=== PATIENT | female | born 1965 | race Caucasian/White ===

== ENCOUNTER 2020-11-28 10:48 | Outpatient (CLI) | payer OTHER, SELFPAY ==
[2020-11-28 18:23] LABS: Anion Gap 9 mmol/L (8-16); Blood Urea Nitrogen 34 mg/dL (7-17); Calcium 10.2 mg/dL (8.4-10.2); Carbon Dioxide 27 mmol/L (22-30); Chloride 104 mmol/L (98-107); Cholesterol 208 mg/dL (0-200); Estimated Glomerular Filt Rate 51; Glucose 206 mg/dL (65-105); HDL Direct 41 mg/dL; Potassium 4.7 mmol/L (3.4-5.0); Sodium 140 mmol/L (137-145); Triglycerides 446 mg/dL (<150)
[2020-11-28 18:34] LABS: LDL Cholesterol Direct 90 mg/dL
[2020-11-28 18:40] LABS: Free T4 Free Thyroxine 0.72 ng/mL (0.78-2.19)
[2020-11-28 19:01] LABS: Microalbumin Urine Random 15.1 mg/L (0-16.7)
[2020-11-28 19:02] LABS: Creatinine Urine 162.3 mg/dL; MALB Creatinine Ratio 9.3 mg/g (0-30)
== END 2020-11-28 10:49 | disposition home or self-care (01) ==
PROVIDERS: PCP Family Medicine; Visit Provider Internal Medicine Endocrinology, Diabetes & Metabolism
DX: E03.9 Hypothyroidism, unspecified (principal); E11.9 Type 2 diabetes mellitus without complications; E78.1 Pure hyperglyceridemia
CPT/HCPCS: 36415; 80048; 80061; 82043; 82607; 84439; 84443

== ENCOUNTER 2021-07-21 11:49 | Outpatient (CLI) | payer OTHER, SELFPAY ==
[2021-07-21 13:06] LABS: Basophils Absolute Auto 0.1 K/mm3 (0.0-0.1); Basophils Percent Auto 0.5 % (0.2-1.2); Eosinophils Absolute Auto 0.2 K/mm3 (0-0.3); Eosinophils Percent Auto 2.2 % (0-4.4); Hematocrit 44.1 % (37.0-47.0); Hemoglobin 13.9 g/dL (12.0-15.0); Immature Granulocyte Absolute 0.05 K/mm3 (0.00-0.031); Immature Granulocyte Percent A 0.5 % (0-0.5); Lymphocytes Absolute Auto 2.02 K/mm3 (0.9-3.2); Lymphocytes Percent Auto 19.6 % (18.3-44.2); Mean Corpuscular HGB Conc 31.5 g/dl (32-36); Mean Corpuscular Volume 91.9 fl (80-100); Mean Platelet Volume 10.3 fl (7.4-10.4); Monocytes Absolute Auto 0.5 K/mm3 (0.1-0.6); Neutrophils Absolute Auto 7.5 K/mm3 (1.3-6.7); Neutrophils Percent Auto 72.2 % (45.5-73.1); Platelet Count Result 369 k/mm3 (150-375); Red Cell Distribution Width 13.7 % (11.5-14.5); White Blood Count 10.3 K/mm3 (4.5-10.0)
[2021-07-21 13:16] LABS: Anion Gap 13 mmol/L (8-16); Blood Urea Nitrogen 36 mg/dL (7-17); Calcium 10.1 mg/dL (8.4-10.2); Carbon Dioxide 26 mmol/L (22-30); Chloride 99 mmol/L (98-107); Cholesterol 204 mg/dL (0-200); Estimated Glomerular Filt Rate 51; Glucose 189 mg/dL (65-110); HDL Direct 40 mg/dL; Potassium 4.7 mmol/L (3.4-5.0); Sodium 138 mmol/L (137-145); Triglycerides 303 mg/dL (<150)
[2021-07-21 13:27] LABS: LDL Cholesterol Direct 94 mg/dL
[2021-07-21 13:33] LABS: Free T4 Free Thyroxine 0.84 ng/mL (0.78-2.19); Vitamin D 25 Hydroxy 56.2 ng/mL
== END 2021-07-21 11:50 | disposition home or self-care (01) ==
LOC: ANHWCLAB 11:52
PROVIDERS: PCP Family Medicine; Visit Provider Internal Medicine Endocrinology, Diabetes & Metabolism
DX: E78.5 Hyperlipidemia, unspecified (principal); E11.65 Type 2 diabetes mellitus with hyperglycemia; E03.9 Hypothyroidism, unspecified; Z68.43 Body mass index [BMI] 50.0-59.9, adult
CPT/HCPCS: 36415; 80048; 80061; 82306; 84439; 84443; 85025

== ENCOUNTER 2022-01-28 11:54 | Outpatient (CLI) | payer OTHER, SELFPAY ==
[2022-01-28 13:28] LABS: Alanine Aminotransferase 28 U/L (6-35); Albumin Level 4.6 g/dL (3.5-5.1); Alkaline Phosphatase 91 U/L (38-126); Anion Gap 12 mmol/L (8-16); Aspartate Amino Transferase 28 U/L (14-36); Bilirubin,Total 0.2 mg/dL (0.2-1.3); Blood Urea Nitrogen 44 mg/dL (7-17); Calcium 9.5 mg/dL (8.4-10.2); Carbon Dioxide 23 mmol/L (22-30); Chloride 103 mmol/L (98-107); Cholesterol 173 mg/dL (0-200); Estimated Glomerular Filt Rate 46; Glucose 122 mg/dL (65-110); HDL Direct 39 mg/dL; Potassium 4.8 mmol/L (3.4-5.0); Sodium 138 mmol/L (137-145); Triglycerides 336 mg/dL (<150)
[2022-01-28 13:40] LABS: LDL Cholesterol Direct 69 mg/dL
[2022-01-28 13:46] LABS: Free T4 Free Thyroxine 0.84 ng/mL (0.78-2.19)
[2022-01-28 13:50] LABS: Microalbumin Urine Random 14.5 mg/L (0-16.7)
[2022-01-28 14:00] LABS: Creatinine Urine 169.6 mg/dL; MALB Creatinine Ratio 8.5 mg/g (0-30)
== END 2022-01-28 11:55 | disposition home or self-care (01) ==
LOC: ANHWCLAB 11:56
PROVIDERS: PCP Family Medicine; Visit Provider Internal Medicine Endocrinology, Diabetes & Metabolism
DX: E03.9 Hypothyroidism, unspecified (principal); E11.65 Type 2 diabetes mellitus with hyperglycemia
CPT/HCPCS: 36415; 80053; 80061; 82043; 82607; 84439; 84443

== ENCOUNTER 2022-11-06 08:39 | Outpatient (CLI) | payer OTHER, SELFPAY ==
[2022-11-06 19:09] LABS: Creatinine Urine 103.8 mg/dL
[2022-11-06 19:10] LABS: Anion Gap 8 mmol/L (8-16); Blood Urea Nitrogen 31 mg/dL (7-17); Calcium 9.1 mg/dL (8.4-10.2); Carbon Dioxide 30 mmol/L (22-30); Chloride 101 mmol/L (98-107); Cholesterol 152 mg/dL (0-200); Estimated Glomerular Filt Rate 57; Glucose 119 mg/dL (65-110); HDL Direct 32 mg/dL; Potassium 4.7 mmol/L (3.4-5.0); Sodium 139 mmol/L (137-145); Triglycerides 298 mg/dL (<150)
[2022-11-06 19:11] LABS: Free T4 Free Thyroxine 0.82 ng/mL (0.78-2.19); Vitamin D 25 Hydroxy 40.1 ng/mL
[2022-11-06 19:14] LABS: MALB Creatinine Ratio 7.8 mg/g (0-30); Microalbumin Urine Random 8.1 mg/L (0-16.7)
[2022-11-06 19:57] LABS: LDL Cholesterol Direct 72 mg/dL
== END 2022-11-06 08:40 | disposition home or self-care (01) ==
LOC: ANHBWCLAB 08:40
PROVIDERS: PCP Family Medicine; Visit Provider Internal Medicine Endocrinology, Diabetes & Metabolism
DX: E03.9 Hypothyroidism, unspecified (principal); E11.65 Type 2 diabetes mellitus with hyperglycemia; E78.5 Hyperlipidemia, unspecified; R79.89 Other specified abnormal findings of blood chemistry
CPT/HCPCS: 36415; 80048; 80061; 82043; 82306; 82607; 84439; 84443

== ENCOUNTER 2023-05-06 11:44 | Outpatient (CLI) | payer OTHER, SELFPAY ==
[2023-05-06 13:03] LABS: Free T4 Free Thyroxine 0.97 ng/mL (0.78-2.19)
== END 2023-05-06 11:45 | disposition home or self-care (01) ==
LOC: ANHWCLAB 11:46
PROVIDERS: PCP Family Medicine; Visit Provider Internal Medicine Endocrinology, Diabetes & Metabolism
DX: E03.9 Hypothyroidism, unspecified (principal)
CPT/HCPCS: 36415; 84439; 84443

== ENCOUNTER 2023-11-30 14:37 | Outpatient (CLI) | payer OTHER, SELFPAY ==
[2023-11-30 17:09] LABS: Alanine Aminotransferase 23 U/L (6-35); Albumin Level 4.8 g/dL (3.5-5.1); Alkaline Phosphatase 86 U/L (38-126); Anion Gap 7 mmol/L (4-12); Aspartate Amino Transferase 56 U/L (14-36); Bilirubin,Total 0.5 mg/dL (0.2-1.3); Blood Urea Nitrogen 30 mg/dL (7-17); Calcium 10.4 mg/dL (8.4-10.2); Carbon Dioxide 25 mmol/L (22-30); Chloride 104 mmol/L (98-107); Cholesterol 189 mg/dL (0-200); Estimated Glomerular Filt Rate 51; Glucose 112 mg/dL (65-110); HDL Direct 42 mg/dL; Potassium 4.7 mmol/L (3.4-5.0); Sodium 136 mmol/L (137-145); Triglycerides 269 mg/dL (<150)
[2023-11-30 17:20] LABS: LDL Cholesterol Direct 94 mg/dL
[2023-11-30 17:30] LABS: Creatinine Urine 108.1 mg/dL
[2023-11-30 19:03] LABS: MALB Creatinine Ratio < 5.6 mg/g (0-30); Microalbumin Urine Random < 6.0 mg/L (0-16.7)
[2023-11-30 20:19] LABS: Free T4 Free Thyroxine 1.12 ng/mL (0.78-2.19); Vitamin D 25 Hydroxy 37.7 ng/mL
[2023-11-30 21:05] LABS: Iron 94 ug/dL (37-170)
[2023-11-30 21:23] LABS: Percent Iron Saturation 27 % (20-50)
== END 2023-11-30 14:38 | disposition home or self-care (01) ==
LOC: ANHWCLAB 14:40
PROVIDERS: PCP Family Medicine; Visit Provider Internal Medicine Endocrinology, Diabetes & Metabolism
DX: E78.5 Hyperlipidemia, unspecified (principal); E03.9 Hypothyroidism, unspecified; E11.65 Type 2 diabetes mellitus with hyperglycemia; R79.89 Other specified abnormal findings of blood chemistry; Z71.3 Dietary counseling and surveillance
CPT/HCPCS: 36415; 80053; 80061; 82043; 82306; 82607; 82728; 83540; 83550; 84439; 84443

== ENCOUNTER 2024-02-02 00:08 | Day surgery (SDC) | payer OTHER, SELFPAY ==
[2024-01-14 13:54] VITALS: BMI 50.6
[2024-02-02 08:47] VITALS: BP 125/82; PULSE 78; RESP 18; TEMP 36.1; O2SAT 98
--- NOTE | 2024-02-02 08:50 | SUR.PREOP ---
Blood sugar 119 per Dexco,
[2024-02-02] MEDS: LACTATED RINGERS 1,000 ML 150 ML IV CONT (09:04)
--- NOTE | 2024-02-02 09:43 | WPDANESEPPF ---
Anes - Initial Pre Proc Eval Procedure: Operation Date: 02/02/24 10:00 Proposed Procedures p Screening Colonoscopy - Neil Celeste MD Date/Time: 02/02/24 09:43 Surgeon: Neil Celeste MD Pre Op Diagnosis: Neoplasm screening Patient Data Age: 59 Gender: F Height: 1.63 m Weight: 134.3 kg Last Vital Signs Temp 36.1 C L 02/02/24 08:47 Pulse 78 02/02/24 08:47 Resp 18 02/02/24 08:47 BP 125/82 02/02/24 08:47 Pulse Ox 98 02/02/24 08:47 O2 Del Method Room Air 02/02/24 08:47 Allergies Allergy/AdvReac Type Severity Reaction Status Date / Time ciprofloxacin AdvReac Unknown ANXIETY Verified 02/02/24 08:46 gemfibrozil AdvReac Unknown elevated Verified 02/02/24 08:46 creatinine Penicillins AdvReac Unknown unknown Verified 02/02/24 08:46 Xtpzwcu-BEW-PqB Reductase AdvReac Unknown severe Verified 02/02/24 08:46 Inhibitor depression [Uxsrrts-Cyd-Hfn Reductase Inhibitor] Home Medications Medication Instructions Recorded Confirmed Type acetaminophen 500 mg tablet 500 mg PO Q6H PRN Pain 05/14/20 01/14/24 History (Tylenol Extra Strength) oxcarbazepine 300 mg tablet 300 mg PO DAILY 07/21/21 01/14/24 History alprazolam 0.5 mg tablet (Xanax) 0.5 mg PO BID 10/21/21 02/02/24 History meloxicam 15 mg tablet 15 mg PO DAILY PRN pain (scale 06/01/22 01/14/24 Rx score 4-6) #30 tabs albuterol sulfate 90 mcg/actuation 2 puff inhalation Q4-6H PRN 06/30/22 01/14/24 Rx aerosol inhaler (ProAir HFA) shortness of breath or wheezing #8.5 grams vortioxetine 10 mg tablet 10 mg PO DAILY 11/05/22 01/14/24 History (Trintellix) blood-glucose sensor (Dexcom G7 #9 ea 04/15/23 01/14/24 Rx Sensor device) fluticasone propionate 50 2 spray intranasal DAILY PRN 05/13/23 01/14/24 History mcg/actuation nasal Allergy Symptoms spray,suspension (Flonase Allergy Relief) allopurinol 300 mg tablet 300 mg PO DAILY #90 tabs 09/23/23 01/14/24 Rx atorvastatin 10 mg tablet 10 mg PO DAILY #90 tabs 10/25/23 01/14/24 Rx Synthroid 75 mcg tablet 75 mcg PO DAILY #90 tabs 11/30/23 01/14/24 Rx (levothyroxine) blood sugar diagnostic (OneTouch #100 ea 11/30/23 01/14/24 Rx Verio test strips) dapagliflozin propanediol 10 mg See Rx Instructions .Route 11/30/23 01/14/24 Rx tablet (Farxiga) .COMPLEX #90 tabs lamotrigine 100 mg tablet See Rx Instructions .Route .COMPLEX 11/30/23 01/14/24 History (Lamictal) metformin 500 mg tablet See Rx Instructions .Route 11/30/23 01/14/24 Rx .COMPLEX #360 tabs olmesartan 20 1 tablet PO DAILY #90 tabs 01/24/24 Rx mg-hydrochlorothiazide 12.5 mg tablet semaglutide 2 mg/dose (8 mg/3 mL) See Rx Instructions .Route 01/24/24 Rx subcutaneous pen injector (Ozempic) .COMPLEX #9 mL Patient hx anesthesia problems: none Family hx anesthesia problems: none Results Review: All pre-operative results and documents have been reviewed as part of the pre-operative evaluation. [facility] Past Medical History Medical History Acid reflux Anemia Anxiety Asthma Bipolar disorder Body mass index (BMI) greater than 50 (07/26/18) Diabetes 1.5, managed as type 2 Diabetes mellitus type 2, uncontrolled Diabetes type 2, controlled Diverticulosis Environmental allergies Essential (primary) hypertension Gout Hyperlipidemia Hypertension Hypothyroidism (acquired) Iron deficiency anemia Irritable bowel Lobulated kidney Menopausal symptoms Microcytic anemia Migraines Other hyperlipidemia Presence of internal fixation priyank in left upper extremity Thyroid disease Type 2 diabetes mellitus Vitamin D deficiency, unspecified Surgical History Surgical History History of breast biopsy History of dilation and curettage History of laparoscopy History of surgery on arm [place] teeth removed Family History Family History (Reviewed
--- NOTE | 2024-02-02 09:49 | PM.HPGS ---
History of Present Illness History of Present Illness Consent: Risks, benefits, and alternatives have been discussed and questions answered. Patient agrees to proceed with procedure. Chief complaint: Neoplasm screening Narrative: Kenia Dodd is a 59 year old female here for screening colonoscopy, last one 10 years ago Review of Systems Review of Systems: All systems reviewed & are unremarkable except as noted in HPI and below PMFSH Past Medical History Medical History Acid reflux Anemia Anxiety Asthma Bipolar disorder Body mass index (BMI) greater than 50 (07/26/18) Diabetes 1.5, managed as type 2 Diabetes mellitus type 2, uncontrolled Diabetes type 2, controlled Diverticulosis Environmental allergies Essential (primary) hypertension Gout Hyperlipidemia Hypertension Hypothyroidism (acquired) Iron deficiency anemia Irritable bowel Lobulated kidney Menopausal symptoms Microcytic anemia Migraines Other hyperlipidemia Presence of internal fixation priyank in left upper extremity Thyroid disease Type 2 diabetes mellitus Vitamin D deficiency, unspecified Surgical History Surgical History History of breast biopsy History of dilation and curettage History of laparoscopy History of surgery on arm [place] teeth removed Family History Family History Grandparent Family history of Alzheimer's disease Family history of heart disease in male family member before age 55 Acute myocardial infarction Carcinoma of colon Father Family history of diabetes mellitus in first degree relative Diabetes mellitus Family history of hypercholesterolemia Mother Family history of diabetes mellitus in first degree relative Family history of malignant neoplasm of ovary Diabetes mellitus Family history of malignant neoplasm Sibling Diabetes mellitus Family history of hypercholesterolemia Other Asthma Depression Family history of arthritis Family history of cardiovascular disease Family history of congestive heart failure Family history of hearing loss Family history of mental disorder Family history of osteoporosis Family history of thyroid disease Hypertension Social History Social History Social History: Retired from [employer], worked in the transfer student office. Smoking status: Never smoker Second hand tobacco smoke exposure: No Alcohol intake: current Alcohol use details: Rarely Substance use: never Substance use type: does not use Lack of Transportation: No Lack of Food: Never True Current Housing: I Have Housing Concerned About Future Housing: No Difficulty Paying Gas/Electric Bills: No Difficulty Paying for Meds: No Currently Unemployed: No Difficulty w/ Childcare or Family Care: No Living arrangements: alone Occupation/Education: retired Gender identity (if verbalized by the patient): Female Agree to blood products: Yes Meds Home Medications and Allergies Home Medications Medication Instructions Recorded Confirmed Type acetaminophen 500 mg tablet 500 mg PO Q6H PRN Pain 05/14/20 01/14/24 History (Tylenol Extra Strength) oxcarbazepine 300 mg tablet 300 mg PO DAILY 07/21/21 01/14/24 History alprazolam 0.5 mg tablet (Xanax) 0.5 mg PO BID 10/21/21 02/02/24 History meloxicam 15 mg tablet 15 mg PO DAILY PRN pain (scale 06/01/22 01/14/24 Rx score 4-6) #30 tabs albuterol sulfate 90 mcg/actuation 2 puff inhalation Q4-6H PRN 06/30/22 01/14/24 Rx aerosol inhaler (ProAir HFA) shortness of breath or wheezing #8.5 grams vortioxetine 10 mg tablet 10 mg PO DAILY 11/05/22 01/14/24 History (Trintellix) blood-glucose sensor (Dexcom G7 #9 ea 04/15/23 01/14/24 Rx Sensor device) fluticasone propionate 50 2 spray intranasal DA
[2024-02-02 10:13] VITALS: BP 92/38; PULSE 86; RESP 18; O2SAT 94
[2024-02-02 10:23] VITALS: BP 98/61; PULSE 82; RESP 18; O2SAT 93
[2024-02-02 10:31] VITALS: BP 107/56; PULSE 78; RESP 18; O2SAT 92
== END 2024-02-02 10:47 | disposition home or self-care (01) ==
PROVIDERS: PCP Family Medicine; Visit Provider Internal Medicine Gastroenterology
PROC: 0DJD8ZZ Inspection of Lower Intestinal Tract, Via Natural or Artificial Opening Endoscopic (ICD-10-PCS; CPT 45378; principal; 2024-02-02 10:00)
DX: Z12.11 Encounter for screening for malignant neoplasm of colon (principal); D12.3 Benign neoplasm of transverse colon; K64.8 Other hemorrhoids; K57.30 Diverticulosis of large intestine without perforation or abscess without bleeding; I10 Essential (primary) hypertension; E78.49 Other hyperlipidemia; K21.9 Gastro-esophageal reflux disease without esophagitis; D64.9 Anemia, unspecified; F41.9 Anxiety disorder, unspecified; J45.909 Unspecified asthma, uncomplicated; F31.9 Bipolar disorder, unspecified; E11.9 Type 2 diabetes mellitus without complications; E03.9 Hypothyroidism, unspecified; D50.9 Iron deficiency anemia, unspecified; K58.9 Irritable bowel syndrome, unspecified; E07.9 Disorder of thyroid, unspecified; E55.9 Vitamin D deficiency, unspecified; E66.01 Morbid (severe) obesity due to excess calories; Z68.43 Body mass index [BMI] 50.0-59.9, adult; Z79.51 Long term (current) use of inhaled steroids; Z79.84 Long term (current) use of oral hypoglycemic drugs; Z79.85 Long-term (current) use of injectable non-insulin antidiabetic drugs; Z98.890 Other specified postprocedural states; Z80.0 Family history of malignant neoplasm of digestive organs; Z80.41 Family history of malignant neoplasm of ovary; Z80.49 Family history of malignant neoplasm of other genital organs
CPT/HCPCS: 45385; 88305; J1596; J2704; J7120

== ENCOUNTER 2024-07-27 06:49 | Emergency (ER) | payer OTHER, SELFPAY ==
[2024-07-27] VITALS (9 sets, daily range): BP systolic 108–139; BP diastolic 77–89; PULSE 89–118; RESP 16–20; TEMP 36.6; O2SAT 90–100
--- NOTE | ~2024-07-27 | US_ITS ---
EXAMINATION: US pelvic complete w TV INDICATION: Adnexal mass seen on CT. Comparison:CT dated 07/27/2024 TECHNIQUE: Multiple transabdominal and endovaginal sonographic images of the pelvis performed. FINDINGS: The uterus measures 5.9 x 2.6 cm. There is a small uterine fibroid measuring 1.3 cm on the left in the uterus. The endometrial complex measures 2 mm. Right ovary is not visualized. In the left adnexa there is a complex mass measuring 12.6 x 8.4 x 10.8 cm with internal vascularity and surrounding fluid. IMPRESSION: 1. Complex right adnexal mass measuring up to 12.6 cm with internal vascularity, suspicious for ovari an adenocarcinoma. Reviewed, dictated and finalized at location B. [facility] IMPRESSION: 1. Complex right adnexal mass measuring up to 12.6 cm with internal vascularity , suspicious for ovarian adenocarcinoma.
--- NOTE | ~2024-07-27 | CT_ITS ---
CT of the Abdomen and Pelvis: Indication: Abdominal pain Technique: 2.5 mm axial scans were obtained through the abdomen and pelvis following intravenous adm inistration of 100 cc of Omnipaque 350. Dose reduction technique was used on this scan by utilizing a utomated exposure control and iterative reconstruction technique. The dose-length product (DLP) was 1 629.65 mGy-cm. Findings: Scans through the lung bases are unremarkable. The liver, spleen, pancreas, gallbladder, adrenals and kidneys are within normal limits. No evidence of aortic aneurysm. No lymphadenopathy. No bowel obstruction or bowel wall thickening. There is no evidence to suggest acute appendicitis. Images through the pelvis were performed. There is a complex cystic mass in the pelvis measuring appr oximately 10.1 x 7.5 x 10.1 cm, partially draped over the uterus posteriorly and along the left side. Small amount of abdominopelvic ascites. Urinary bladder unremarkable. Impression: 10.1 x 7.5 x 10.1 cm complex cystic mass in the pelvis. This this is suspicious for complex cystic ad nexal neoplasm, though benign cystic lesion is not completely excluded. Gynecologic surgical/oncologi c consultation advised. Small amount of abdominopelvic ascites. Reviewed, dictated and finalized at location M. [facility] Impression: 10.1 x 7.5 x 10.1 cm complex cystic mass in the pelvis. This this is suspicious for complex cystic adnexal neoplasm, though benign cystic lesion is not comple tely excluded. Gynecologic surgical/oncologic consultation advised. Small amount of abdominopelvic ascites.
--- NOTE | 2024-07-27 07:15 | ED.ABDPAIN ---
HPI - Abdominal Pain General Chief Complaint: Abdominal Pain Stated Complaint: abdominal pain; worst ever Time Seen by Provider: 07/27/24 07:06 History of Present Illness HPI narrative: Patient is a 59-year-old female who presents ER with abdominal pain. Diffuse and cramping. Thought she was dying yesterday but feels slightly improved today. She felt like she needed to have a bowel movement but could not. She was straining. She is on Ozempic but has had no changes in her dosage. No fevers or chills. Cannot describe aggravating or alleviating factors. Related Data Home Medications ?Medication ?Instructions ?Recorded ?Confirmed ?Last Taken ?Type acetaminophen 500 mg tablet 500 mg PO Q6H PRN Pain 05/14/20 05/31/24 Unknown History (Tylenol Extra Strength) oxcarbazepine 300 mg tablet 300 mg PO DAILY 07/21/21 05/31/24 Unknown History vortioxetine 10 mg tablet 10 mg PO DAILY 11/05/22 05/31/24 Unknown History (Trintellix) fluticasone propionate 50 2 spray intranasal DAILY PRN 05/13/23 05/31/24 Unknown History mcg/actuation nasal Allergy Symptoms spray,suspension (Flonase Allergy Relief) atorvastatin 10 mg tablet 10 mg PO QHS 05/01/24 05/31/24 Unknown History metformin 500 mg tablet 1,000 mg PO BID 05/01/24 05/31/24 Unknown History alprazolam 0.5 mg tablet (Xanax) 0.5 mg PO BID 05/31/24 05/31/24 Unknown History lamotrigine 100 mg tablet 200 mg PO DAILY 05/31/24 05/31/24 Unknown History (Lamictal) Allergies Allergy/AdvReac Type Severity Reaction Status Date / Time ciprofloxacin AdvReac Unknown ANXIETY Verified 05/31/24 11:31 gemfibrozil AdvReac Unknown elevated Verified 05/31/24 11:31 creatinine Penicillins AdvReac Unknown unknown Verified 05/31/24 11:31 Ihiieaf-KLO-BmP Reductase AdvReac Unknown severe Verified 05/31/24 11:31 Inhibitor (Mbloyqc-Bil-Nvb depression Reductase Inhibitor) Review of Systems Review of Systems: All systems reviewed & are unremarkable except as noted in HPI and below Constitutional: Constitutional: Reports no additional constitutional complaints Cardiovascular: Cardiovascular: Reports no additional cardiovascular complaints Respiratory: Respiratory: Reports no additional respiratory complaints Gastrointestinal: Gastrointestinal: Reports abdominal pain, Denies diarrhea, Denies nausea and Denies vomiting [facility] Past Medical History Medical History Acid reflux Anemia Anxiety Asthma Bipolar disorder Body mass index (BMI) greater than 50 (07/26/18) Diabetes 1.5, managed as type 2 Diabetes mellitus type 2, uncontrolled Diabetes type 2, controlled Diverticulosis Environmental allergies Essential (primary) hypertension Gout Hyperlipidemia Hypertension Hypothyroidism (acquired) Iron deficiency anemia Irritable bowel Lobulated kidney Menopausal symptoms Microcytic anemia Migraines Other hyperlipidemia Presence of internal fixation priyank in left upper extremity Thyroid disease Type 2 diabetes mellitus Vitamin D deficiency, unspecified Surgical History Surgical History History of breast biopsy History of dilation and curettage History of laparoscopy History of surgery on arm [place] teeth removed Family History Family History Grandparent Family history of Alzheimer's disease Family history of heart disease in male family member before age 55 Acute myocardial infarction Carcinoma of colon Father Family history of diabetes mellitus in first degree relative Diabetes mellitus Family history of hypercholesterolemia Mother Family history of diabetes mellitus in first degree relative Family history of malignant neoplasm of ovary Diabetes mellitus Family history of malignant neoplasm Sibling Diabetes mellitus Family history of hypercholesterolemia Other Asthma Depression Family history of arthritis Family history of cardiovascular disease Family history of congestive heart failure Family history of hearing loss Family history of mental disorder Family history of osteoporosis Family history of thyroid disease Hypertension Social History Social History Social History: Retired from [employer], 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 Smoking status: Never smoker Second hand tobacco smoke exposure: No Alcohol intake: current Alcohol use details: Rarely Substance use: never Substance use type: does not use Lack of Transportation: No Lack of Food: Never True Current Housing: I Have Housing Concerned About Future Housing: No Difficulty Paying Gas/Electric Bills: No Difficulty Paying for Meds: No Currently Unemployed: No Difficulty w/ Childcare or Family Care: No Living arrangements: alone Occupation/Education: retired Gender identity (if verbalized by the patient): Female Agree to blood products: Yes Exam Narrative: GENERAL: Well-appearing, well-nourished, and in no acute distress. HEAD: Normocephalic, atraumatic. ENT: Mucous membranes moist. NECK: Supple. CHEST: Clear to auscultation. No respiratory distress. HEART: Regular rate and rhythm. Normal peripheral pulses. ABDOMEN: Soft, TTP in RLQ, nondistended,. EXTREMITIES: Normal range of motion. No edema. SKIN: Warm, dry, no rash. NEURO: Alert and oriented x3. PSYCH: Normal mood and affect. Course Course Emergency Course: Discussed lab and imaging abnormalities with the patient. Discussed case with Dr. Valencia with Gynecology/ Oncology at [facility]. They have patient's information and will contact her to arrange follow-up outpatient. Pain controlled at this time. Also discussed case with Dr. Stewart with Gynecology here. I have ordered a CEA, CA-125, CA 19-9. Dr. Garcia will arrange lab draw for Inhibin A and B. Vital Signs Vital signs: Vital Signs Temperature 97.8 F 07/27/24 07:00 Pulse Rate 118 H 07/27/24 07:00 Respiratory Rate 18 07/27/24 07:00 Blood Pressure 126/86 07/27/24 07:00 Pulse Oximetry 100 07/27/24 07:00 Oxygen Delivery Room Air 07/27/24 07:00 Temperature 97.8 F 07/27/24 07:00 Pulse Rate 92 07/27/24 12:00 Respiratory Rate 20 07/27/24 12:00 Blood Pressure 120/78 07/27/24 12:00 Pulse Oximetry 97 07/27/24 12:00 Oxygen Delivery Room Air 07/27/24 07:00 MDM - Abdominal Pain Lab Data 07/27/24 08:25 07/27/24 08:34 Labs: Lab Results 07/27/24 07/27/24 07/27/24 Range/Units 07:05 08:25 08:34 WBC 11.9 H (4.5-10.0) K/mm3 RBC 4.36 (4.2-5.4) M/mm3 Hgb 12.8 (12.0-15.0) g/dL Hct 40.4 (37.0-47.0) % MCV 92.7 (80-100) fl MCH 29.4 (26-34) pg MCHC 31.7 L (32-36) g/dl RDW 14.6 H (11.5-14.5) % Plt Count 337 (150-375) k/mm3 MPV 9.7 (7.4-10.4) fl Immature Gran % (Auto) 0.5 (0-0.5) % Neut % (Auto) 84.0 H (45.5-73.1) % Lymph % (Auto) 9.9 L (18.3-44.2) % [place] % (Auto) 4.9 (2.6-8.5) % Eos % (Auto) 0.4 (0-4.4) % Baso % (Auto) 0.3 (0.2-1.2) % Lymph # (Auto) 1.18 (0.9-3.2) K/mm3 [place] # (Auto) 0.6 (0.1-0.6) K/mm3 Eos # (Auto) 0.1 (0-0.3) K/mm3 Baso # (Auto) 0.0 (0.0-0.1) K/mm3 Abs Immat Gran (auto) 0.06 H (0.00-0.031) K/mm3 Absolute Neuts (auto) 10.0 H (1.3-6.7) K/mm3 Absolute Nucleated RBC 0.000 (0.0-0.012) K/mm3 Nucleated RBC % 0.0 (0.0-0.2) % Sodium 137 (137-145) mmol/L Potassium 4.0 (3.4-5.0) mmol/L Chloride 102 (98-107) mmol/L Carbon Dioxide 29 (22-30) mmol/L Anion Gap 6 (4-12) mmol/L BUN 27 H (7-17) mg/dL Creatinine 1.30 H 1.40 H (0.7-1.0) mg/dL Estim Creat Clear Calc 57 53 ml/min Estimated GFR 42 L 38 L (59 - ) Glucose 112 H (65-110) mg/dL Calcium 9.2 (8.4-10.2) mg/dL Total Bilirubin 0.6 (0.2-1.3) mg/dL AST 24 (14-36) U/L ALT 18 (6-35) U/L Alkaline Phosphatase 77 (38-126) U/L Total Protein 7.0 (6.3-8.2) g/dL Albumin 3.9 (3.5-5.1) g/dL Lipase 98 (23-300) U/L Urine Color Dark yellow (Yellow) Urine Appearance Turbid H (Clear) Urine pH 5.0 (5.0-9.0) Ur Specific [place] 1.039 H (1.001-1.035) Urine Protein 2+ H (Negative) mg/dL Urine Glucose (UA) 3+ H (Negative) mg/dL Urine Ketones Trace H (Negative) mg/dL Ur Blood (Man) Negative (Negative) Urine Nitrate Negative (Negative) Urine Bilirubin 2+ H (Negative) Urine Urobilinogen 1.0 (<2.0) mg/dL Add Ur Microanalysis Reviewed Leukocyte Esterase Rfl 2+ H (Negative) SEBLE/UL Urine RBC 3-5 H (0-2) /hpf Urine WBC >100 H (0-3) /hpf Ur Squamous Epith Cells Moderate (Few) /hpf Urine Bacteria 1+ H /hpf Urine Casts >20 Imaging Data Radiologist's impression: ITS Impressions Abdomen/Pelvis CT 07/27/24 08:46 Impression: 10.1 x 7.5 x 10.1 cm complex cystic mass in the pelvis. This this is suspicious for complex cystic adnexal neoplasm, though benign cystic lesion is not completely excluded. Gynecologic surgical/oncologic consultation advised. Small amount of abdominopelvic ascites. Pelvic/Transvag US 07/27/24 10:10 IMPRESSION: 1. Complex right adnexal mass measuring up to 12.6 cm with internal vascularity, suspicious for ovarian adenocarcinoma. ADDENDUM: 07/27/24 1036 Correction: IMPRESSION: 1: Complex LEFT adnexal mass measuring up to 12.6 cm with internal vascularity, suspicious for ovarian adenocarcinoma. Discharge Plan Discharge Clinical Impression: Mass of left ovary, UTI (urinary tract infection) Patient Disposition: Home, Self-Care Condition: Stable Instructions: Antibiotic Form, Urinary Tract Infection in Women (ED) Additional Instructions: there is evidence of a mass on her left ovary. This is concerning for malignancy. You need to follow-up with Gynecology Oncology. I have given you their phone number but they also plan to call you to help with scheduling. Furthermore you should follow-up with your fitting room attendant, Dr. Garcia, as additional outpatient lab work will need to be drawn. Return ER if you have worsening pain, you cannot keep down food /water / medication, or you have additional concerns. Patient Language: French Prescriptions: New cephalexin 500 mg capsule 500 mg PO Q12H Qty: 14 0RF hydrocodone-acetaminophen 5-325 mg tablet 1 tablet PO Q6H PRN (Reason: pain) Qty: 12 0RF No Action oxcarbazepine 300 mg tablet 300 mg PO DAILY alprazolam [Xanax] 0.5 mg tablet 0.5 mg PO BID Rx Instructions: patient take medication 6 times a day acetaminophen [Tylenol Extra Strength] 500 mg tablet 500 mg PO Q6H PRN (Reason: Pain) lamotrigine [Lamictal] 100 mg tablet 200 mg PO DAILY Trintellix 10 mg tablet 10 mg PO DAILY Rx Instructions: patient take one tablet by mouth one time a day albuterol sulfate [ProAir HFA] 90 mcg/actuation HFA aerosol inhaler 2 puff INHALATION Q4-6H PRN (Reason: shortness of breath or wheezing) Qty: 8.5 1RF fluticasone propionate [Flonase Allergy Relief] 50 mcg/actuation spray,suspension 2 spray NASAL DAILY PRN (Reason: Allergy Symptoms) Rx Instructions: administer into each nostril (DME) OneTouch Verio test strips Strip See Rx Instructions .ROUTE .COMPLEX Qty: 100 1RF Dose Instruction: CHECK BLOOD SUGARS THREE TIMES a DAY Rx Instructions: CHECK BLOOD SUGARS once a DAY levothyroxine [Unithroid] 50 mcg tablet 50 mcg PO DAILY Qty: 90 2RF metformin 500 mg tablet 1,000 mg PO BID atorvastatin 10 mg tablet 10 mg PO QHS RSVPreF3 antigen-AS01E (PF) 120 mcg/0.5 mL suspension for reconstitution 0.5 ml IM ONCE Qty: 1 0RF meloxicam 15 mg tablet 15 mg PO DAILY PRN (Reason: pain (scale score 4-6)) Qty: 30 0RF allopurinol 300 mg tablet 300 mg PO DAILY Qty: 90 1RF Ozempic 2 mg/dose (8 mg/3 mL) pen injector See Rx Instructions .ROUTE .COMPLEX Qty: 9 1RF Dose Instruction: TWO (2) MG (0.75 ML) SUBCUTANEOUSLY WEEKLY Rx Instructions: TWO (2) MG (0.75 ML) SUBCUTANEOUSLY WEEKLY olmesartan-hydrochlorothiazide 20-12.5 mg tablet 1 tablet PO DAILY Qty: 90 1RF Farxiga 10 mg tablet See Rx Instructions .ROUTE .COMPLEX Qty: 90 1RF Dose Instruction: TAKE ONE TABLET BY MOUTH DAILY Rx Instructions: TAKE ONE TABLET BY MOUTH DAILY (DME) Dexcom G7 Sensor Device See Rx Instructions .Route Qty: 9 0RF Rx Instructions: change every 10 days Follow-up/Referrals: yahir valencia [Other] - 2 Weeks Rissa Watson MD [Primary Care Provider] - Garry Garcia MD [Physician] - 1 Week
[2024-07-27] MEDS: SODIUM CHLORIDE 0.9% IV 1,000 ML 999 ML IV CONT (07:24)
[2024-07-27] MEDS: ONDANSETRON INJ 4 MG/2 ML VIAL IV PUSH (07:25)
[2024-07-27] MEDS: MORPHINE SULFATE (*CRX) 4 MG/ML INJ IV PUSH (07:25)
[2024-07-27 07:45] LABS: Add Urine Microscopic? YES; Appearance Urine Turbid (Clear); Bacteria Urine 1+ /hpf; Bilirubin Urine 2+ (Negative); Blood Urine Negative (Negative); Color Urine Dark Yellow (Yellow); Glucose Urine UA 3+ mg/dL (Negative); Ketones Urine Trace mg/dL (Negative); Leukocyte Esterase Ur 2+ LEU/UL (Negative); Need Manual Microscopic Reviewed; Nitrate Urine Negative (Negative); Non Pathogenic Casts >20; Protein Urine 2+ mg/dL (Negative); Specific Grav Ur 1.039 (1.001-1.035); Squamous Epithelial Cell Urine Moderate /hpf (Few); WBC Urine >100 /hpf (0-3)
[2024-07-27 08:33] LABS: Basophils Percent Auto 0.3 % (0.2-1.2); Eosinophils Absolute Auto 0.1 K/mm3 (0-0.3); Eosinophils Percent Auto 0.4 % (0-4.4); Hematocrit 40.4 % (37.0-47.0); Hemoglobin 12.8 g/dL (12.0-15.0); Immature Granulocyte Absolute 0.06 K/mm3 (0.00-0.031); Immature Granulocyte Percent A 0.5 % (0-0.5); Lymphocytes Absolute Auto 1.18 K/mm3 (0.9-3.2); Lymphocytes Percent Auto 9.9 % (18.3-44.2); Mean Corpuscular HGB Conc 31.7 g/dl (32-36); Mean Corpuscular Hemoglobin 29.4 pg (26-34); Mean Corpuscular Volume 92.7 fl (80-100); Mean Platelet Volume 9.7 fl (7.4-10.4); Monocytes Absolute Auto 0.6 K/mm3 (0.1-0.6); Monocytes Percent Auto 4.9 % (2.6-8.5); Platelet Count Result 337 k/mm3 (150-375); Red Blood Count 4.36 M/mm3 (4.2-5.4); Red Cell Distribution Width 14.6 % (11.5-14.5); White Blood Count 11.9 K/mm3 (4.5-10.0)
[2024-07-27 08:35] LABS: Estimated CRCL calculation 53 ml/min; Estimated Glomerular Filt Rate 38
[2024-07-27 08:44] LABS: Alanine Aminotransferase 18 U/L (6-35); Albumin Level 3.9 g/dL (3.5-5.1); Alkaline Phosphatase 77 U/L (38-126); Anion Gap 6 mmol/L (4-12); Aspartate Amino Transferase 24 U/L (14-36); Bilirubin,Total 0.6 mg/dL (0.2-1.3); Blood Urea Nitrogen 27 mg/dL (7-17); Calcium 9.2 mg/dL (8.4-10.2); Carbon Dioxide 29 mmol/L (22-30); Chloride 102 mmol/L (98-107); Estimated CRCL calculation 57 ml/min; Estimated Glomerular Filt Rate 42; Glucose 112 mg/dL (65-110); Lipase 98 U/L (23-300); Sodium 137 mmol/L (137-145)
[2024-07-27 13:37] LABS: Carcinoembryonic Antigen 3.3 ng/mL (0.0-3.0)
[2024-07-28 10:24] LABS: CA-125 191 U/mL (<35)
[2024-07-28 14:48] LABS: CA 19-9 288 U/mL (<34)
== END 2024-07-27 12:30 | disposition home or self-care (01) ==
PROVIDERS: Emergency Medicine; Emergency Provider Emergency Medicine; PCP Family Medicine
DX: N83.9 Noninflammatory disorder of ovary, fallopian tube and broad ligament, unspecified (principal); N39.0 Urinary tract infection, site not specified; E11.9 Type 2 diabetes mellitus without complications; F31.9 Bipolar disorder, unspecified; I10 Essential (primary) hypertension; E78.5 Hyperlipidemia, unspecified; E55.9 Vitamin D deficiency, unspecified; Z79.84 Long term (current) use of oral hypoglycemic drugs
CPT/HCPCS: 36415; 74177; 76830; 76856; 80053; 81001; 82378; 83690; 85025; 86301; 86304; 87086; 96361; 96374; 96375; 99284; J2270; J2405; J7030; Q9967

== ENCOUNTER 2025-03-19 14:48 | Outpatient (CLI) | payer OTHER, SELFPAY ==
--- OUTSIDE RECORDS SUMMARY | 2025-03-19 15:01 | XMS_ITS | Encounter Summary ---
Author Organization [facility] Address [address] [address] Phone Care Team Providers Care Citizen Participation Specialist Name Role Phone Canelo Watson MD Primary Care Provider Reason for Referral * Radiology Services (Routine) - Closed Specialty Diagnoses / Procedures Referred By Pavan arita Referred To Contact Radiology Diagnoses Visit for screening mammogram Procedures EVIE SCREENING BILATERAL DIGITAL W CAD W JACKSON Garry Garcia MD [address] [facility] [address] [address] Phone: tel: fax: Referral ID Status Reason Start Date Expiration Date Visits Re quested Visits Authorized [id number] Closed 08/07/2024 1 1 MACY TECHNOLOGIST Encounter Details Date Type Department Care Team (Latest Contact Info) Description 08/07/2024 Transcribe Orders [facility] [address] [place] [address] [place] [address] Garry Garcia MD [address] [facility] [address] [address] Visit for screening mammogram (Primary Dx) Social History Tobacco Use Types Packs/Day Years Used Date Smoking Tobacco: Never Smokeless Tobacco: Never Alcohol Use Standard Drinks/Week Comments No 0 (1 standard drink = 0.6 oz pur e alcohol) Comments No Sex and Gender Information Value Date Recorded Sex Assigned at Female 08/01/2023 7:42 PM PHARMACY TECHNOLOGIST Legal Sex Female 7:12 PM CDT Gender Identity Female 08/01/2023 7:42 PM PHARMACY TECHNOLOGIST Sexual Orientation Straight 08/01/2023 7: 42 PM PHARMACY TECHNOLOGIST documented as of this encounter Plan of Treatment Not on file documented as of this encounter Results * EVIE SCREENING BILATERAL DIGITAL W CAD W JACKSON (08/08/2024 12:07 PM PHARMACY TECHNOLOGIST) Anatomical Region Laterality Modality breast Bilateral Mammography 08/08/2024 12:0 7 PM PHARMACY TECHNOLOGIST Narrative 08/10/2024 3:46 PM PHARMACY TECHNOLOGIST - EVIE SCREENING BILATERAL DIGITAL W CAD W JACKSON BILATERAL DIGITAL SCREENING MAMMOGRAM 3D/2D WITH CAD WITH MEDIOLATERAL OBLIQUE CRANIOCAUDAL: 08/08/2024 The study was acquired using digital technology and interpreted from soft copy. Current study was also evaluated with ICAD version 7.2. 2D digital mammographic views, as well as 3D digital tomosynthesis were performed in the CC and MLO projections. CLINICAL: Routine screening. Patient has no complaints. No personal history of cancer. Patient is waiting for diagnosis of an ovarian tumor. Mother with ovarian cancer. COMPARISONS: Comparison is made to exams dated: 03/26/2022, 02/05/2020, and 07/29/2023 [facility]. BREAST TISSUE:There are scattered areas of fibroglandular density. FINDINGS: There is a benign mass in the right breast. There also are benign calcifications in the right breast. Additionally, there is a biopsy clip in the right breast. No significant masses, calcifications, or other findings are seen in either breast. There has been no significant interval change. IMPRESSION: BENIGN There is no mammographic evidence of malignancy. A 1 year screening mammogram is recommended. A letter will be sent to the patient with these results. The patient will be entered into a reminder system with a target due date of 1 year for her next screening exam. Electronically signed by: Jason milan/jennyfer:08/10/2024 11:53:11 Poultry Slaughterer(s): RT Hailey(R)(M), [facility] letter sent: Normal Exam Reading location: [facility] Mammogram BI-RADS: Category 2: Benign Procedure Note Jason Marie MD - 08/10/2024 - EVIE SCREENING BILATERAL DIGITAL W CAD W JACKSON BILATERAL DIGITAL SCREENING MAMMOGRAM 3D/2D WITH CAD WITH MEDIOLATERAL OBLIQUE CRANIOCAUDAL: 08/08/2024 The study was acquired using digital technology and interpreted from soft copy. Current study was also evaluated with ICAD version 7.2. 2D digital mammographic views, as well as 3D digital tomosynthesis were performed in the CC and MLO projections. CLINICAL: Routine screening. Patient has no complaints. No personal history of cancer. Patient is waiting for diagnosis of an ovarian tumor. Mother with ovarian cancer. COMPARISONS: Comparison is made to exams dated: 03/26/2022, 02/05/2020, and 07/29/2023 [facility]. BREAST TISSUE:There are scattered areas of fibroglandular density. FINDINGS: There is a benign mass in the right breast. There also are benign calcifications in the right breast. Additionally, there is a biopsy clip in the right breast. No significant masses, calcifications, or other findings are seen in either breast. There has been no significant interval change. IMPRESSION: BENIGN There is no mammographic evidence of malignancy. A 1 year screening mammogram is recommended. A letter will be sent to the patient with these results. The patient will be entered into a reminder system with a target due date of 1 year for her next screening exam. Electronically signed by: Jason milan/jennyfer:08/10/2024 11:53:11 Poultry Slaughterer(s): RT Hailey(R)(M), [facility] letter sent: Normal Exam Reading location: [facility] Mammogram BI-RADS: Category 2: Benign us Garry Garcia MD IMG MAMMO ORDERABLES Final R esult documented in this encounter Visit Diagnoses Diagnosis Visit for screening mammogram- Primary Other screening mammogram Visit for screening mammogram Other screening mammogram documented in this encounter Care Teams Citizen Participation Specialist Relationship Specialty Start Date End Date Canelo Watson MD PCP - General Family Medicine 04/22/20 documented as of this encounter
--- OUTSIDE RECORDS SUMMARY | 2025-03-19 15:01 | XMS_ITS ---
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, idiopathic Obstructive sleep apnea syndrome 01/20/2016 Overview (11/13/2016): Obstructive sleep apnea syndrome Body mass index 40+ - severely obese 01/20/2016 Overview (11/13/2016): Morbid obesity with BMI of 60.0-69.9, adult Diabetes mellitus type 2 in obese 10/29/2015 Overview (11/12/2016): Type 2 diabetes mellitus in obese Hypothyroidism 10/29/2015 Overview (11/12/2016): Hypothyroidism Bipolar affective disorder, current episode mixe d 10/29/2015 Overview (11/12/2016): Bipolar affective disorder, current episode mixed Benign essential hypertension 10/29/2015 Overview (11/12/2016): Benign essential hypertension Current Treatment and Therapy Plans IV Maintenance Therapy Plan* Plan Start Date:10/18/2024 Plan Provider:Arin Hitchcock MD Linked Problems Malignant neoplasm of left o vary (HCC) Treatment Medications No medications scheduled. Other Current Plans Hydration Therapy Plan* Plan Start Date:02/09/2025 Plan Provider:Arin Hitchcock MD Linked Problems Idiopathic hypotension Treatment Medications No medications scheduled. Past Treatment and Therapy Plans Oncology Chemotherapy Treatment Plan Name Start Date Discontinue Date Treatment Medications Discontinue Reason Plan Provider Cycles Albumin-bound PACLItaxel (Abraxane) / CARBOplatin 21 Day Cycles - MANAGER CATEGORY 5 02/08/2025 albumin-bound PACLItaxel (ABRAXANE) 5 mg/mLCARBOplat in (PARAPLATIN) IVPB in 250 mL (by AUC: GOG) Therapy Complete Arin Hitchcock MD 3 of 3 cycles completed PACLItaxel / CARBOplatin (AUC 5) 21 Day Cycles - MANAGER CATEGORY 5 10/20/2024 CARBOplatin (by AUC:GOG) (PARAPLATIN)CA RBOplatin (PARAPLATIN) IVPB in 250 mL (by AUC: GOG)PACLitaxel (TAXOL)PACLIta xel (TAXOL) IVPB in 500 mL Provider Discretion Arin Hitchcock MD 1 of 3 cycles started Lifetime Dose Tracking * Chemical Lifetime Dose Automatic Entry Manual Entr y Fluoro Time 0.3 minutes 0.3 minutes 0 minutes Air kerma at the reference point (Ka,r) 2 mGy 2 mGy 0 mGy DLP 2,698 mGycm 2,698 mGycm 0 mGycm Resolved Problems Problem Noted Date Diagnosed Date Resolved Date Pre-procedure lab exam 10/10/202402/08 At high risk for bleeding 10/10/2024 Abdominal pain 09/11/2024 09/28/2024 Extreme obesity with alveolar hypoventilation 01/20/20 16 08/16/2024 Overview (11/13/2016): Obesity hypoventilation syndrome Hypersomnia 01/20/2016 08/16/2024 Overview (11/13/2016): Hypersomnia
--- OUTSIDE RECORDS SUMMARY | 2025-03-19 15:01 | XMS_ITS | Clinical Summary ---
Author Organization [facility] Address [address] [place] [phone] Care Team Providers Care Automobile Inspector Name Role Phone Canelo Watson MD Primary Care Provider Garry Garcia MD Unavailable [phone] Allergies Active Allergy Reactions Criticality Noted Date Comments Adhesive Redness Low 02/08/2025 Latex Itching,Other (See comments) Low Latex Bandage; skin irritation Penicillins Unknown Low As a kid, I had mold allergies so was not given Penicillin Paclitaxel Shortness of breath,Other (See comments),Cough,Nausea only High 10/18/2024 Tightness in chest, lower back pain Medications OXcarbazepine (TRILEPTAL) 300 mg tablet take 1 tablet by oral route every day 0 0 6 Active metFORMIN (FORTAMET) 500 mg 24 hr tablet take 2 tablet by oral route 2 times every day with the evening meal 135 0 6 Active atorvastatin (LIPITOR) 10 mg tabletIndication s:hyperlipidemia Take 1 tablet (10 mg total) by mouth with lunch 4 Active Farxiga 10 mg tabletIndication s:type 2 diabetes mellitus Take 1 tablet (10 mg total) by mouth with lunch 4 Active levothyroxine (SYNTHROID) 50 mcg tabletIndication s:hypothyroidism Take 1 tablet (50 mcg total) by mouth with lunch 4 Active olmesartan-hydro chlorothiazide (BENICAR HCT) 20-12.5 mg per tablet Take 1 tablet by mouth with lunch 4 Active Ozempic 2 mg/dose (8 mg/3 mL) pen injector injectionIndicat ions:type 2 diabetes mellitus Inject 2 mg under the skin once a week Administers on Tuesdays 4 Active Trintellix 10 mg tabletIndication s:Bipolar Disorder Take 1 tablet (10 mg total) by mouth with lunch 5 Active lamoTRIgine (LaMICtal) 100 mg tabletIndication s:Bipolar Disorder in Remission Take 1 tablet (100 mg total) by mouth 2 (two) times a day Active allopurinoL (ZYLOPRIM) 300 mg tabletIndication s:prevention of acute gout attack Take 1 tablet (300 mg total) by mouth with lunch Active UNABLE TO FIND Take 1 each by mouth nightly Med Name: HiPhenolic supplement Active acetaminophen (TYLENOL) 500 mg tablet Take 2 tablets (1,000 mg total) by mouth every 6 (six) hours as needed for pain 5 Active polyethylene glycol (MIRALAX) 17 gram/dose bulk powderIndication s:constipation Take 17 g by mouth daily 510 g 5 Active senna (SENOKOT) 8.6 mg tabletIndication s:constipation Take 1 tablet by mouth 2 (two) times a day 60 tablet 11 5 09/13/19 26 Active oxyCODONE (ROXICODONE) 5 mg immediate release tabletIndication s:Pain Take 1 tablet (5 mg total) by mouth every 4 (four) hours as needed for pain 10 tablet 5 Active Additional Information Patient not taking.Reported on 12/14/2024 apixaban (ELIQUIS) 2.5 mg tablet Take 1 tablet (2.5 mg total) by mouth 2 (two) times a day for 10 days 20 tablet 5 Active Additional Information Patient not taking.Reported on 10/16/2024 Dexcom G7 Sensor device 5 Active ALPRAZolam (XANAX) 1 mg tablet 1 5 Active lidocaine-priloc jennifer creamIndications :Administration of Local Anesthesia Apply topically as needed for pain Apply 1 hour prior to IV access and cover. 30 g 1 5 Active Additional Information Patient not taking.Reported on 12/14/2024 EPINEPHrine 0.3 mg/0.3 mL auto-injection syringeIndicatio ns:Anaphylaxis Inject to outer thigh as needed for severe allergic reaction (examples, but not limited to: difficulty breathing, throat swelling) 1 each 5 Active nystatin cream Apply topically 2 (two) times a day 30 g 2 5 11/24/19 26 Active fluocinolone 0.01 % shampooIndicatio ns:chemo induced folliculitis Apply up to 1 oz to scalp once daily, lather and leave on for 5 minutes; rinse thoroughly 120 mL 2 5 Active omeprazole (PriLOSEC) 40 mg capsule Take 1 capsule (40 mg total) by mouth daily 30 capsule 3 5 12/15/19 26 Active clobetasoL (TEMOVATE) 0.05 % external solutionIndicati ons:Dermatosis of the Scalp Apply to scalp 1-2 times per day 50 mL 2 5 Active al-mag hydroxide-simeth icone, diphenhydramine, & nystatin 1:1:1 (MAGIC MOUTHWASH) suspensionIndica tions:Mucositis Swish and swallow 15 mL every 4 (four) hours as needed (mucositis) 300 mL 5 Active dicyclomine (BENTYL) 10 mg capsuleIndicatio ns:diarrhea Take 1 capsule (10 mg total) by mouth 4 (four) times a day as needed (diarrhea) 30 capsule 1 5 Active letrozole (FEMARA) 2.5 mg tablet Take 1 tablet (2.5 mg total) by mouth daily 30 tablet 5 5 08/07/20 25 Active Active Problems Problem Noted Date Diagnosed Date [...] hypertension 10/29/2015 Overview (11/12/2016): Benign essential hypertension Resolved Problems Problem Noted Date Diagnosed Date Resolved Date Pre-procedure lab exam 10/10/202402/08 At high risk for bleeding 10/10/2024 Abdominal pain 09/11/2024 09/28/2024 Extreme obesity with alveolar hypoventilation 01/20/20 16 08/16/2024 Overview (11/13/2016): Obesity hypoventilation syndrome Hypersomnia 01/20/2016 08/16/2024 Overview (11/13/2016): Hypersomnia Encounters Date Type Department Care Team Description 03/06/2025 3:00 PM CDT Clinical Support [address] [phone] Marii Casey, PhD Anxiety 03/05/2025 2:00 PM CDT Clinical Support [address] [place] [address] Wandy Orellana, PhD 02/23/2025 8:52 AM CDT - 02/23/2025 11:59 PM CDT Hospital Encounter [facility] [address] [place] [address] Arin Hitchcock MD Malignant neoplasm of left ovary (HCC) Discharge Disposition: Discharge to home or self care 02/20/2025 7:30 AM CDT Lab [address] [phone] Pre-procedure lab exam; Malignant neoplasm of left ovary (HCC) 02/20/2025 Telephone [facility] Radiology [address] [place] [address] Abram Dyer RN 02/20/2025 Telephone [facility] Obstetrics and Gynecology [address] [place] [address] [facility] 13th [place] [address] Marisa Davis, VICKY 02/15/2025 2:00 PM CDT Clinical Support [facility] [address] [place] [phone] Wandy Orellana, PhD Anxiety (Primary Dx) 02/15/2025 Telephone [facility] Obstetrics and Gynecology [facility]ly [facility] 13th [place] [address] Va Guillen, VICKY 02/15/2025 Orders Only [facility] Gynecology [address] [facility] 13th [place] [address] Va Guillen, RN Encounter for preprocedural laboratory examination (Primary Dx); Malignant neoplasm of left ovary (HCC) 02/15/2025 Orders Only [facility] Obstetrics and Gynecology [facility] 13th [place] [address] Marisa Davis, VICKY Pre-procedure lab exam (Primary Dx); Malignant neoplasm of left ovary (HCC) 02/15/2025 Telephone [facility] Obstetrics and Gynecology [address] [facility] 13th [place] [address] Marisa Davis, VICKY 02/10/2025 10:49 AM CDT - 02/10/2025 11:59 PM CDT Hospital Encounter [address] [address] Loose stools Discharge Disposition: Discharge to home or self care 02/09/2025 5:00 PM CDT - 02/09/2025 7:26 PM CDT Hospital Encounter [facility] [address] [place] [phone] Idiopathic hypotension (Primary Dx) Discharge Disposition: Discharge to home or self care 02/08/2025 2:00 PM CDT Office Visit [facility] Gynecology [address] [place] [address] [facility] 13th [place] [address] Arin Hitchcock MD Malignant neoplasm of left ovary (HCC) (Primary Dx) 02/08/2025 10:12 AM CDT - 02/08/2025 11:59 PM CDT Hospital Encounter [facility] Radiology [facility] [address] [place] [address] Malignant neoplasm of left ovary (HCC) Discharge Disposition: Discharge to home or self care 02/08/2025 Orders Only [facility] Obstetrics [facility] Gynecology [address] [place] [address] [facility] 13th [place] [address] Marisa Davis, VICKY 02/08/2025 Orders Only [facility] Obstetrics and Gynecology [address] [place] [address] [facility] 13th [place] [address] Marisa Davis, VICKY Malignant neoplasm of left ovary (HCC) (Primary Dx) 02/08/2025 Orders Only [facility] Gynecologic On[facility] [address] [place] [address] Hope Ellison, VICKY Malignant neoplasm of left ovary (HCC) (Primary Dx) 02/08/2025 Orders Only [facility] Ob[facility] Gynecology [address] [place] [address] [facility] 13th [place] [address] Marisa Davis, VICKY Loose stools (Primary Dx) 02/06/2025 9:00 AM CDT [address] [address] Malignant neoplasm of left ovary (HCC) 02/06/2025 Orders Only [facility] Ob[facility] Gynecology [address] [place] [address] 13th [place] [address] Marisa Davis, VICKY Malignant neoplasm of left ovary (HCC) (Primary Dx) 01/31/2025 2:00 PM CDT Clinical Support [address] [address] Wandy Orellana, PhD 01/25/2025 Telephone [facility]necology [address] [place] [address] 13th [place] [address] Va Guillen RN 01/19/2025 9:10 AM CDT [address] [address] Fatigue, unspecified type; Malignant neoplasm of left ovary (HCC) 01/18/2025 Orders Only [facility] Ob[facility]etrics [facility] Gynecology [address] [place] [address] 13th [place] [address] Marisa Davis, VICKY Fatigue, unspecified type (Primary Dx); Malignant neoplasm of left ovary (HCC) 01/18/2025 Telephone [facility] Ob[facility]etrics [facility] Gynecology [address] [place] [address] 13th [place] [address] Marisa Davis, VICKY 01/17/2025 3:30 PM CDT Clinical Support [address] [place] [address] Wandy Orellana, PhD 01/15/2025 Orders Only [facility] Gynecologic Oncology [facility] ([facility]) [address] [place] [address] oHpe Ellison, VICKY Mucositis 01/15/2025 Orders Only [facility] Gynecologic Oncology [facility] ([facility]) [address] [place] [address] Hope Ellison RN Mucositis (Primary Dx) 01/10/2025 3:00 PM CDT Clinical Support [address] [address] Wandy Orellana, PhD 12/28/2024 3:00 PM CDT Clinical Support [address] [address] Wandy Orellana, PhD 12/20/2024 1:30 PM CDT Clinical Support [address] [address] Wandy Orellana, PhD from Last 3 Months Immunizations Immunization Administration Dates Next Due Influenza, Quadrivalent, Split, Intramuscular ,05/09/2015 Influenza, Quadrivalent, Spl it, Preservative Free, Intramuscular 05/21/2023,05/15/2022 Influenza, Trivalent, IM (MDV) 06/02/2019,2017 Influenza, Trivalent, Recomb inant, Egg Free, Preservative Free, Antibiotic Free, IM (FLUBLOK) 05/01/2024 RSV, Bivalent, Protein Subun it Rsvpref, Diluent (Abrysvo) 05/06/2024,05/26/2023 Surgical History Surgery Date Site/Laterality Comments OTHER SURGICAL HISTORY 08/09/1987 - 08/08/1988 D&C OPEN REDUCTION INTERNAL FIXATION ORIF BREAST BIOPSY 04/27/2014 Right ARM SURGERY 08/09/2003 - 08/08/2004 Left Upper Left LAPAROSCOPY 08/09/1997 - 08/08/1998 PORT PLACEMENT CHEST >5 YEARS 10/16/2024 N/A PORT REMOVAL 02/23/2025 N/A Medical History Medical History Date Comments Type 2 diabetes mellitus Diabete s type 2; Comments: DNT 10/29/2015 - Multiple environmental allergies Allergies, environmental; Comments: DNT 10/29/2015 - Depression Depression Anxiety disorder Anxiety Hypertension Hypertension Hx Other Medical Headache, migra ine Hx Other Medical Bipolar disorde r; Comments: DNT 10/29/2015 - Tension headache Headache, tensi on Hypercholesteremia Thyroid disease Headaches Sleep apnea Family History Medical History Relation Name Comments Diabetes Brother Dementia Father Diabetes Father Hypertension Father Diabetes Mother Hypertension Mother Ovarian cancer Mother history is qu estionable Anesthesia problems Neg Hx Relation Name Status Comments Brother Alive Father Alive Mother Social History Tobacco Use Types Packs/Day Years Used Date Smoking Tobacco: Never Passive Smoke Exposure: Never Smokeless Tobacco: Never Tobacco Cessation:Counseling Given: Not Answered Alcohol Use Standard Drinks/Week Comments Yes 0 (1 standard drink = 0.6 oz pur e alcohol) AUDIT-C Answer Date Recorded Q1: How often do you have a drink containing alc ohol? Monthly or less 02/23/2025 Q2: How many drinks containi ng alcohol do you have on a typical day when you are drinking? 1 or 2 02/23/2025 Q3: How often do you have si x or more drinks on one occasion? Never 02/23/2025 Hunger Vital Sign Answer Date Recorded Within the past 12 months, y ou worried that your food would run out before you got the money to buy more. Never true 11/04/19 25 Within the past 12 months, t he food you bought just didn't last and you didn't have money to get more. Never true 11/03/2024 Personal Safety Answer Date Recorded Have you ever been in or are you currently in a harmful physical or emotional relationship or is someone making you feel afraid or unsafe? 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 Gender Identity Not on file Sexual Orientation Not on file Obstetrics History Para Term AB IAB SAB Ectopic Multiple Livin g Live Births 1 Date Outcome GA Total Labor Labor/2nd/3rd Weight Sex Type Anes PTL Kami A1 A5 Name Clin Last Filed Vital Signs Vital Sign Reading Time Taken Comments Blood Pressure 110/50 02/23/2025 9:59 AM CDT Pulse 78 02/23/2025 9:59 AM CDT Temperature 36 C (96.8 F) 02/23/2025 9:11 AM CDT Respiratory Rate 16 02/23/2025 9:59 AM CDT Oxygen Saturation 95% 02/23/2025 9:59 AM CDT Inhaled Oxygen Concentration - - Weight 127 kg (280 lb) 02/23/2025 9:13 AM CDT Height 167 cm (5' 5.75) 02/08/2025 2:01 PM CDT Body Mass Index 45.54 02/08/2025 2:01 PM CDT Plan of Treatment Health Maintenance Due Date Last Done Comments Cervical Cancer Screening 1964 Colon Cancer Screening-Colonoscopy 1964 Depression Screening 1964 Hepatitis C Screening 1965 Dilated Eye Exam 1964 Foot Exam 1964 DTaP/Tdap/Td Vaccine (1 - Tdap) 01/03/1975 Hepatitis B Screening 01/03/1982 Regular Well Visit/Exam 18-64 01/03/1982 Pneumococcal vaccine <65 (1 of 2 - PCV) 01/03/1983 Zoster Vaccine (1 of 2) 01/03/1983 Covid-19 Vaccine (8 - Pfizer risk 2023- season) 2024 05/09/2024, 06/02/2023, 05/15/2022, Additional history exists Hemoglobin A1C 03/01/2025 09/01/2024 Influenza Vaccine (#1) 2025 4, 05/21/2023, 05/15/2022, Additional history exists Breast Cancer Screening-Mammogram 08/08/2025 08/08/2024, 08/08/2024, 07/29/2023, Additional history exists Lipid Panel 09/11/2025 09/11/2024, 08/0 08/2015, 10/29/2015 Albumin Creatinine Ratio, Urine 12/11/2025 eGFR 02/06/2026 02/06/2025, 01/07, 12/11/2024, Additional history exists Medical Devices Implanted Type Area Wash Plant Operator Device Identifier Shelf Expiration Date Model / Serial / Lot [employer] Xcela Power Port 8fr [id number] - [id number] Implanted:Qty: 1 on 10/16/2024 at [facility] [employer] 06/05/2029 [id number] / / [id number] Procedures Procedure Name Priority Date/Time Associated Diagnosis Comments PORT REMOVAL Schedule Routine, Read Routine (OP Routine) 02/23/2025 10:01 AM CDT Malignant neoplasm of left ovary (HCC) DIFFERENTIAL AUTO Routine 02/20/2025 7:4 0 AM CDT Pre-procedure lab exam Malignant neoplasm of left ovary (HCC) CA 125 Routine 02/20/2025 7:40 AM CDT Malignant neoplasm of left ovary (HCC) PROTIME-INR Routine 02/20/2025 7:40 AM CDT Pre-procedure lab exam Malignant neoplasm of left ovary (HCC) CBC WITH AUTO DIFFERENTIAL Routine 02/20/2025 7:40 AM CDT Pre-procedure lab exam Malignant neoplasm of left ovary (HCC) C. DIFFICILE TESTING Routine 02/10/2025 10:[address] Loose [address] ABDOMEN PELVIS W CONTRAST Routine 02/08/2025 11:18 AM CDT Malignant neoplasm of left ovary (HCC) EGFR Routine 02/06/2025 9:04 AM CDT Malignant neoplasm of left ovary (HCC) DIFFERENTIAL AUTO Routine 02/06/2025 9:0 4 AM CDT Malignant neoplasm of left ovary (HCC) CBC WITH AUTO DIFFERENTIAL Routine 02/06/2025 9:04 AM CDT Malignant neoplasm of left ovary (HCC) COMPREHENSIVE METABOLIC PANEL Routine 02/06/2025 9:04 AM CDT Malignant neoplasm of left ovary (HCC) CA 125 Routine 02/06/2025 9:04 AM CDT Malignant neoplasm of left ovary (HCC) EGFR Routine 01/19/2025 9:14 AM CDT Fatigue, unspecified type Malignant neoplasm of left ovary (HCC) DIFFERENTIAL AUTO Routine 01/19/2025 9:1 4 AM CDT Fatigue, unspecified type Malignant neoplasm of left ovary (HCC) CBC WITH AUTO DIFFERENTIAL Routine 01/19/2025 9:14 AM CDT Fatigue, unspecified type Malignant neoplasm of left ovary (HCC) COMPREHENSIVE METABOLIC PANEL Routine 01/19/2025 9:14 AM CDT Fatigue, unspecified type Malignant neoplasm of left ovary (HCC) ALBUMIN CREATININE RATIO, URINE Routine 12/11/2024 1:25 PM CDT LIPID PANEL Routine 09/11/2024 11:04 PM SURFACE HYDROLOGIST POCT HEMOGLOBIN A1C Routine 09/01/2024 9 :26 AM SURFACE HYDROLOGIST from Last 3 Months or Most Recently Relevant to Health Maintenance Results * IR Port Removal (02/23/2025 10:01 AM CDT) Anatomical Region Laterality Modality Body N/A Radio Fluoroscop y 02/23/2025 10:3 1 AM CDT Impressions 02/23/2025 10:31 AM CDT Successful port removal. Electronically signed by: Yovani Narvaez M.D. Narrative 02/23/2025 10:31 AM CDT EXAMINATION: PORT REMOVAL HISTORY: Completion of therapy. ATTENDING PRESENCE: Yovani Narvaez M.D., the attending radiologist was present from the beginning to the end of the procedure. SEDATION: The patient did not require conscious sedation. TECHNIQUE: The risks, benefits and alternatives were discussed and informed consent was obtained. Prior to beginning the procedure, Olden Protocol was used to confirm the patient's identity and planned procedure. Fluoroscopy time has been recorded in the electronic medical record. Maximum sterile barriers including cap, mask, hand hygiene, sterile gloves, sterile gown, large sterile drape and 2% chlorhexidine for cutaneous antisepsis were used. A fluoroscopic image was recorded prior to the beginning of the procedure. The skin adjacent to the right chest wall port was sterilely prepped, draped and infiltrated with 1% lidocaine. After making a short transverse incision, the port reservoir was freed using a combination of sharp and blunt dissection. The catheter was then removed. A fluoroscopic image was recorded following removal of the port. The deep tissues were approximated using 4-0 Monocryl and the incision closed using skin glue. ESTIMATED BLOOD LOSS: Minimal. CONDITION: Stable DISCHARGED TO: home FINDINGS: The port site showed no purulence or other evidence of infection. Procedure Note Yovani Narvaez MD - 02/23/2025 EXAMINATION: PORT REMOVAL HISTORY: Completion of therapy. ATTENDING PRESENCE: Yovani Narvaez M.D., the attending radiologist was present from the beginning to the end of the procedure. SEDATION: The patient did not require conscious sedation. TECHNIQUE: The risks, benefits and alternatives were discussed and informed consent was obtained. Prior to beginning the procedure, Olden Protocol was used to confirm the patient's identity and planned procedure. Fluoroscopy time has been recorded in the electronic medical record. Maximum sterile barriers including cap, mask, hand hygiene, sterile gloves, sterile gown, large sterile drape and 2% chlorhexidine for cutaneous antisepsis were used. A fluoroscopic image was recorded prior to the beginning of the procedure. The skin adjacent to the right chest wall port was sterilely prepped, draped and infiltrated with 1% lidocaine. After making a short transverse incision, the port reservoir was freed using a combination of sharp and blunt dissection. The catheter was then removed. A fluoroscopic image was recorded following removal of the port. The deep tissues were approximated using 4-0 Monocryl and the incision closed using skin glue. ESTIMATED BLOOD LOSS: Minimal. CONDITION: Stable DISCHARGED TO: home FINDINGS: The port site showed no purulence or other evidence of infection. IMPRESSION: Successful port removal. Electronically signed by: Yovani Narvaez M.D. Arin Hitchcock MD IMG IR PROCEDURES Final R esult * Differential, auto (02/20/2025 7:40 AM CDT) Neutrophil abs 3.07 1.50 - 6.50 K/cumm Imm gran abs 0.01 0.00 - 0.10 K/cumm [facility] Lymphocyte abs 1.58 0.80 - 3.30 K/cumm [facility] Monocyte abs 0.34 0.20 - 0.80 K/cumm [facility] Eosinophil abs 0.14 0.00 - 0.50 K/cumm [facility] Basophil abs 0.02 0.00 - 0.10 K/cumm [facility] Neutrophil pct 59.5 % [facility] Comment: Interpretive Data Percent cell count reference ranges are not reported, since discordance with absolute values may lead to misinterpretation of CBC data. Current Interpretive Data was last revised on 2017. Imm gran pct 0.2 % [facility] Comment: Interpretive Data Percent cell count reference ranges are not reported, since discordance with absolute values may lead to misinterpretation of CBC data. Current Interpretive Data was last revised on 2017. Lymphocyte pct 30.6 % [facility] Comment: Interpretive Data Percent cell count reference ranges are not reported, since discordance with absolute values may lead to misinterpretation of CBC data. Current Interpretive Data was last revised on 2017. Monocyte pct 6.6 % [facility] Comment: Interpretive Data Percent cell count reference ranges are not reported, since discordance with absolute values may lead to misinterpretation of CBC data. Current Interpretive Data was last revised on 2017. Eosinophil pct 2.7 % [facility] Comment: Interpretive Data Percent cell count reference ranges are not reported, since discordance with absolute values may lead to misinterpretation of CBC data. Current Interpretive Data was last revised on 2017. Basophil pct 0.4 % [facility] Comment: Interpretive Data Percent cell count reference ranges are not reported, since discordance with absolute values may lead to misinterpretation of CBC data. Current Interpretive Data was last revised on 2017. Blood 02/20/2025 7:40 AM CDT 02/20/2025 7:49 AM CDT us Arin Hitchcock MD LAB BLOOD ORDERABLES Rosalva vasquez Result [facility] 1 [facility] [employer] [place] [address] * (ABNORMAL) CBC with auto differential (02/20/2025 7:40 AM CDT) WBC 5.16 3.80 - 9.90 K/cumm Hgb 9.9(L) 11.9 - 15.5 g/dL [facility] Hct 31.9(L) 35.6 - 45.5 % [facility] Plt 229 150 - 400 K/cumm [facility] MPV 9.0(L) 9.1 - 12.3 fL [facility] RBC 3.11(L) 3.90 - 5.20 M/cumm [facility] MCV 102.6(H) 81.3 - 96.4 fL [facility] MCH 31.8 27.1 - 33.3 pg [facility] MCHC 31.0(L) 32.3 - 35.7 g/dL [facility] RDW CV 17.9(H) 11.1 - 14.9 % [facility] RDW SD 67.9(H) 35.7 - 48.1 fL [facility] NRBC abs 0.00 0.00 - 0.01 K/cumm [facility] Blood 02/20/2025 7:40 AM CDT 02/20/2025 7:49 AM CDT us Arin Hitchcock MD LAB BLOOD ORDERABLES Rosalva vasquez Result [facility] ([place] 1 [facility] [place] [address] * Protime-INR (02/20/2025 7:40 AM CDT) [facility] PT 10.4 9.7 - 13.0 sec [facility] INR 0.96 0.90 - 1.20 [facility] Comment: Interpretive data Oral anticoagulant therapeutic ranges: Venous thromboembolism prophylaxis or treatment: 2.0-3.0 CARDIOLOGY Standard range: 2.0-3.0 High-intensity range: 2.5-3.5 Refer to indication-specific guidelines for appropriate target ranges for prosthetic heart valve replacement. Current interpretive data was last revised on 2019. Blood 02/20/2025 7:40 AM CDT 02/20/2025 7:49 AM CDT Narrative [facility] - 02/20/2025 8:21 AM CDT Needs to be done prior to her port removal on 02/23 Arin Hitchcock MD LAB BLOOD ORDERABLES Rosalva l Result Performing Organization Address City/[facility] Co de Phone Number [facility] [address] [place] [address] [place] [address] * CA 125 (02/20/2025 7:40 AM CDT) [facility] CA 125 ag 3.0 1.0 - 35.0 units/mL Comment: Interpretive Data The Viki CA 125 assay procedure was used. Results from different manufacturers or methods may not be comparable. Serial testing should be performed using the same method. Testing performed by: [facility], [address] [place] [address], [id number] Blood 02/20/2025 7:40 AM CDT 02/20/2025 9:14 AM CDT Arin Hitchcock MD LAB BLOOD ORDERABLES Rosalva l Result [facility] ([place]) 1 [facility] [place] [address] * C. difficile testing Stool (02/10/2025 10:05 AM CDT) [facility] Result Negative Negative Toxin Result Negative Negative [facility] ([place]) C. diff result Negative, free toxin Negative, free toxin [facility] ([place]) C. diff interp Negative for toxigenic Clostridioides (Clostridium) difficile. Analysis was performed using a glutamate dehydrogenase antigen detection assay combined with a C. difficile toxin detection assay. [facility]) Stool 02/10/2025 10:0 5 AM CDT 02/10/2025 11:32 AM CDT us Arin Hitchcock MD LAB MICROBIOLOGY - GENERA L ORDERABLES Final Result [facility] ([place]) 1 [facility] [place] [address] * CT Abdomen Pelvis W Contrast (02/08/2025 11:18 AM CDT) Anatomical Region Laterality Modality Body N/A Computed Tomogra phy 02/08/2025 11:5 0 AM CDT Impressions 02/08/2025 2:28 PM CDT Interval hysterectomy and bilateral salpingo-oophorectomy since CT from 09/11/2024. No evidence of metastatic disease in abdomen or pelvis. Dictated by: Nuria Guillaume M.D. The radiology attending physician has personally reviewed this study, and had reviewed and/or edited this written report and agrees with it. Electronically signed by: Marie Potts M.D. Narrative 02/08/2025 2:28 PM CDT EXAMINATION: Computed tomography of the abdomen with intravenous contrast HISTORY: Ovarian cancer s/p chemotherapy TECHNIQUE: Transaxial computed tomographic images of the abdomen were obtained with intravenous contrast according to the standard protocol after the uneventful administration of 97 mL Opti-Ray 350 intravenous contrast. COMPARISON: CTA chest abdomen pelvis from 09/11/2024 FINDINGS: Normal heart size. Partially imaged catheter terminates in superior cavoatrial junction. No pericardial effusion. Mild bibasilar atelectasis. No pleural effusion. Liver, gallbladder, spleen, pancreas, adrenals are normal. Bilateral kidneys enhance symmetrically without hydronephrosis. Bladder is nondistended. Patient is status post interval hysterectomy and bilateral salpingo-oophorectomy. Stomach is nondistended. Bowel without obstruction. A few colonic diverticuli are present. Appendix appears normal. No ascites or pneumoperitoneum. No abdominal or pelvic lymphadenopathy. Normal caliber abdominal aorta. Procedure Note Marie Potts MD - 02/08/2025 EXAMINATION: Computed tomography of the abdomen with intravenous contrast HISTORY: Ovarian cancer s/p chemotherapy TECHNIQUE: Transaxial computed tomographic images of the abdomen were obtained with intravenous contrast according to the standard protocol after the uneventful administration of 97 mL Opti-Ray 350 intravenous contrast. COMPARISON: CTA chest abdomen pelvis from 09/11/2024 FINDINGS: Normal heart size. Partially imaged catheter terminates in superior cavoatrial junction. No pericardial effusion. Mild bibasilar atelectasis. No pleural effusion. Liver, gallbladder, spleen, pancreas, adrenals are normal. Bilateral kidneys enhance symmetrically without hydronephrosis. Bladder is nondistended. Patient is status post interval hysterectomy and bilateral salpingo-oophorectomy. Stomach is nondistended. Bowel without obstruction. A few colonic diverticuli are present. Appendix appears normal. No ascites or pneumoperitoneum. No abdominal or pelvic lymphadenopathy. Normal caliber abdominal aorta. IMPRESSION: Interval hysterectomy and bilateral salpingo-oophorectomy since CT from 09/11/2024. No evidence of metastatic disease in abdomen or pelvis. Dictated by: Nuria Guillaume M.D. The radiology attending physician has personally reviewed this study, and had reviewed and/or edited this written report and agrees with it. Electronically signed by: Marie Potts M.D. us Arin Hitchcock MD IMG CT PROCEDURES Final R esult * (ABNORMAL) eGFR (02/06/2025 9:04 AM CDT) eGFR 43(L) >=60 mL/min/1. 73 m2 Comment: Interpretive Data Reference Interval Normal >/= 90 mL/min/1.73m2 Mildly decreased* 60 - 89 mL/min/1.73m2 Mildly to moderately decreased 45 - 59 mL/min/1.73m2 Moderately to severely decreased 30 - 44 mL/min/1.73m2 Severely decreased 15 - 29 mL/min/1.73m2 Kidney Failure < 15 mL/min/1.73m2 *Relative to young adult level Estimated glomerular filtration rate is determined by the 2020 CKD-EPI equation recommended by the National Kidney Foundation (A Unifying Approach to GFR Estimation: Recommendations of the NKF-ASK Task Force on Reassessing the Inclusion of Race in Diagnosing Kidney Disease, JASN 2020). The CKD-EPI equation should not be used for patients with unstable renal function and has not been validated in children and those over 70. Current interpretive data was last reviewed 2021. Blood 02/06/2025 9:04 AM CDT 02/06/2025 9:46 AM CDT us Arin Hitchcock MD LAB BLOOD ORDERABLES Rosalva l Result [facility] ([place]) 1 [facility] [place] [address] * Differential, auto (02/06/2025 9:04 AM CDT) Neutrophil abs 3.72 1.50 - 6.50 K/cumm Imm gran abs 0.01 0.00 - 0.10 K/cumm [facility] ([place]) Lymphocyte abs 1.95 0.80 - 3.30 K/cumm [facility] ([place]) Monocyte abs 0.33 0.20 - 0.80 K/cumm [facility] ([place]) Eosinophil abs 0.13 0.00 - 0.50 K/cumm [facility] ([place]) Basophil abs 0.03 0.00 - 0.10 K/cumm [facility] ([place]) Neutrophil pct 60.3 % [facility] ([place]) Comment: Interpretive Data Percent cell count reference ranges are not reported, since discordance with absolute values may lead to misinterpretation of CBC data. Current Interpretive Data was last revised on 2017. Imm gran pct 0.2 % [facility] ([place]) Comment: Interpretive Data Percent cell count reference ranges are not reported, since discordance with absolute values may lead to misinterpretation of CBC data. Current Interpretive Data was last revised on 2017. Lymphocyte pct 31.6 % [facility] ([place] Comment: Interpretive Data Percent cell count reference ranges are not reported, since discordance with absolute values may lead to misinterpretation of CBC data. Current Interpretive Data was last revised on 2017. Monocyte pct 5.3 % [facility] ([place]) Comment: Interpretive Data Percent cell count reference ranges are not reported, since discordance with absolute values may lead to misinterpretation of CBC data. Current Interpretive Data was last revised on 2017. Eosinophil pct 2.1 % [facility] ([place] Comment: Interpretive Data Percent cell count reference ranges are not reported, since discordance with absolute values may lead to misinterpretation of CBC data. Current Interpretive Data was last revised on 2017. Basophil pct 0.5 % [facility] ([place]) Comment: Interpretive Data Percent cell count reference ranges are not reported, since discordance with absolute values may lead to misinterpretation of CBC data. Current Interpretive Data was last revised on 2017. Blood 02/06/2025 9:04 AM CDT 02/06/2025 9:46 AM CDT Arin Hitchcock MD LAB BLOOD ORDERABLES Rosalva vasquez Result [facility] 1 [facility] Department [place] [address] * (ABNORMAL) CBC with auto differential (02/06/2025 9:04 AM CDT) WBC 6.17 3.80 - 9.90 K/cumm Hgb 10.1(L) 11.9 - 15.5 g/dL [facility] ([place]) Hct 32.1(L) 35.6 - 45.5 % [facility] ([place]) Plt 261 150 - 400 K/cumm [facility] ([place]) MPV 9.4 9.1 - 12.3 fL [facility] ([place]) RBC 3.15(L) 3.90 - 5.20 M/cumm [facility] ([place]) MCV 101.9(H) 81.3 - 96.4 fL [facility] MCH 32.1 27.1 - 33.3 pg [facility] MCHC 31.5(L) 32.3 - 35.7 g/dL [facility] RDW CV 19.3(H) 11.1 - 14.9 % [facility] RDW SD 72.1(H) 35.7 - 48.1 fL [facility] NRBC abs 0.00 0.00 - 0.01 K/cumm [facility] ([place]) Blood 02/06/2025 9:04 AM CDT 02/06/2025 9:46 AM CDT Arin Hitchcock MD LAB BLOOD ORDERABLES Rosalva l Result Performing Organization Address [facility] Co de Phone Number [facility] ([place]) [address] [place] [address] [place] [address] * CA 125 (02/06/2025 9:04 AM CDT) Pathologist [facility] CA 125 ag 3.0 1.0 - 35.0 units/mL Comment: Interpretive Data The Viki CA 125 assay procedure was used. Results from different manufacturers or methods may not be comparable. Serial testing should be performed using the same method. Testing performed by: [facility], [address] [place] [address]., [id number] Blood 02/06/2025 9:04 AM CDT 02/06/2025 11:27 AM CDT Arin Hitchcock MD LAB BLOOD ORDERABLES Rosalva l Result [facility] ([place]) 1 [facility] [place] [address] * (ABNORMAL) Comprehensive metabolic panel (02/06/2025 9:04 AM CDT) Pathologist [facility] Sodium 142 135 - 145 mmol/L Potassium, pl 4.4 3.3 - 4.9 mmol/L [facility] ([place] Chloride 102 97 - 110 mmol/L [facility] CO2 24 22 - 32 mmol/L [facility] ([place]) Anion gap 16(H) 2 - 15 mmol/L [facility] ([place]) BUN 23 6 - 25 mg/dL [facility] ([place]) Creatinine 1.40(H) 0.60 - 1.10 mg/dL [facility] ([place]) Glucose 96 70 - 199 mg/dL [facility] ([place]) Comment: Interpretive Data Fasting glucose >/= 126 mg/dl is diagnostic for diabetes. Fasting is defined as no caloric intake for at least 8 hours. Fasting glucose between 100 mg/dl to 125 mg/dl is diagnostic of prediabetes. In a patient with classic symptoms of hyperglycemia or hyperglycemic crisis, a random glucose >/= 200 mg/dl is diagnostic for diabetes. In the absence of unequivocal hyperglycemia, results should be confirmed by repeat testing. The classification and Diagnosis of Diabetes Diabetes Care 2021; 46: S19-S40. Current interpretive data was last revised 2022. Calcium 9.7 8.5 - 10.3 mg/dL [facility] ([place]) Bilirubin, total 0.2 0.1 - 1.2 mg/dL [facility] ([place]) Protein, pl 6.7 6.5 - 8.5 g/dL [facility] ([place]) Albumin 4.0 3.5 - 5.0 g/dL [facility] ([place]) Alk phos 94 40 - 130 Units/L [facility] ([place]) ALT 8 7 - 45 Units/L [facility]) AST 12 10 - 45 Units/L [facility] ([place]) Blood 02/06/2025 9:04 AM CDT 02/06/2025 9:46 AM CDT us Arin Hitchcock MD LAB BLOOD ORDERABLES Rosalva vasquez Result [facility] ([place]) 1 [facility] [place] [address] * (ABNORMAL) eGFR (01/19/2025 9:14 AM CDT) eGFR 46(L) >=60 mL/min/1. 73 m2 Comment: Interpretive Data Reference Interval Normal >/= 90 mL/min/1.73m2 Mildly decreased* 60 - 89 mL/min/1.73m2 Mildly to moderately decreased 45 - 59 mL/min/1.73m2 Moderately to severely decreased 30 - 44 mL/min/1.73m2 Severely decreased 15 - 29 mL/min/1.73m2 Kidney Failure < 15 mL/min/1.73m2 *Relative to young adult level Estimated glomerular filtration rate is determined by the 2020 CKD-EPI equation recommended by the National Kidney Foundation (A Unifying Approach to GFR Estimation: Recommendations of the NKF-ASK Task Force on Reassessing the Inclusion of Race in Diagnosing Kidney Disease, JASN 2020). The CKD-EPI equation should not be used for patients with unstable renal function and has not been validated in children and those over 70. Current interpretive data was last reviewed 2021. Blood 01/19/2025 9:14 AM CDT 01/19/2025 9:23 AM CDT us Arin Hitchcock MD LAB BLOOD ORDERABLES Rosalva vasquez Result [facility] 1 [facility] [place] [address] * Differential, auto (01/19/2025 9:14 AM CDT) Neutrophil abs 3.55 1.50 - 6.50 K/cumm Imm gran abs 0.01 0.00 - 0.10 K/cumm [facility] ([place]) Lymphocyte abs 2.18 0.80 - 3.30 K/cumm [facility] ([place]) Monocyte abs 0.42 0.20 - 0.80 K/cumm [facility] ([place]) Eosinophil abs 0.19 0.00 - 0.50 K/cumm [facility] ([place]) Basophil abs 0.02 0.00 - 0.10 K/cumm [facility] ([place]) Neutrophil pct 55.7 % [facility] ([place]) Comment: Interpretive Data Percent cell count reference ranges are not reported, since discordance with absolute values may lead to misinterpretation of CBC data. Current Interpretive Data was last revised on 2017. Imm gran pct 0.2 % [facility] ([place]) Comment: Interpretive Data Percent cell count reference ranges are not reported, since discordance with absolute values may lead to misinterpretation of CBC data. Current Interpretive Data was last revised on 2017. Lymphocyte pct 34.2 % [facility] ([place]) Comment: Interpretive Data Percent cell count reference ranges are not reported, since discordance with absolute values may lead to misinterpretation of CBC data. Current Interpretive Data was last revised on 2017. Monocyte pct 6.6 % [facility] ([place]) Comment: Interpretive Data Percent cell count reference ranges are not reported, since discordance with absolute values may lead to misinterpretation of CBC data. Current Interpretive Data was last revised on 2017. Eosinophil pct 3.0 % [facility] ([place]) Comment: Interpretive Data Percent cell count reference ranges are not reported, since discordance with absolute values may lead to misinterpretation of CBC data. Current Interpretive Data was last revised on 2017. Basophil pct 0.3 % [facility] ([place]) Comment: Interpretive Data Percent cell count reference ranges are not reported, since discordance with absolute values may lead to misinterpretation of CBC data. Current Interpretive Data was last revised on 2017. Blood 01/19/2025 9:14 AM CDT 01/19/2025 9:23 AM CDT us Arin Hitchcock MD LAB BLOOD ORDERABLES Rosalva l Result [facility] ([place]) 1 [facility] [place] [address] * (ABNORMAL) CBC with auto differential (01/19/2025 9:14 AM CDT) WBC 6.42 3.80 - 9.90 K/cumm Hgb 9.8(L) 11.9 - 15.5 g/dL [facility] ([place]) Hct 31.3(L) 35.6 - 45.5 % [facility] ([place]) Plt 266 150 - 400 K/cumm [facility] ([place]) MPV 8.7(L) 9.1 - 12.3 fL [facility] ([place]) RBC 3.15(L) 3.90 - 5.20 M/cumm [facility] ([place]) MCV 99.4(H) 81.3 - 96.4 fL [facility] ([place]) MCH 31.1 27.1 - 33.3 pg [facility] ([place]) MCHC 31.3(L) 32.3 - 35.7 g/dL [facility] ([place]) RDW CV 21.1(H) 11.1 - 14.9 % [facility] ([place]) RDW SD 75.2(H) 35.7 - 48.1 fL [facility] ([place]) NRBC abs 0.00 0.00 - 0.01 K/cumm [facility] ([place]) Blood 01/19/2025 9:14 AM CDT 01/19/2025 9:23 AM CDT us Arin Hitchcock MD LAB BLOOD ORDERABLES Rosalva vasquez Result [facility] ([place]) 1 [facility] [place] [address] * (ABNORMAL) Comprehensive metabolic panel (01/19/2025 9:14 AM CDT) Sodium 139 135 - 145 mmol/L Potassium, pl 4.3 3.3 - 4.9 mmol/L [facility]) Chloride 99 97 - 110 mmol/L [facility]) CO2 25 22 - 32 mmol/L [facility] ([place]) Anion gap 15 2 - 15 mmol/L [facility] ([place]) BUN 34(H) 6 - 25 mg/dL [facility] ([place]) Creatinine 1.33(H) 0.60 - 1.10 mg/dL [facility] ([place]) Glucose 124 70 - 199 mg/dL [facility] ([place]) Comment: Interpretive Data Fasting glucose >/= 126 mg/dl is diagnostic for diabetes. Fasting is defined as no caloric intake for at least 8 hours. Fasting glucose between 100 mg/dl to 125 mg/dl is diagnostic of prediabetes. In a patient with classic symptoms of hyperglycemia or hyperglycemic crisis, a random glucose >/= 200 mg/dl is diagnostic for diabetes. In the absence of unequivocal hyperglycemia, results should be confirmed by repeat testing. The classification and Diagnosis of Diabetes Diabetes Care 2021; 46: S19-S40. Current interpretive data was last revised 2022. Calcium 9.5 8.5 - 10.3 mg/dL [facility] ([place]) Bilirubin, total <0.2 0.1 - 1.2 mg/dL [facility] ([place]) Protein, pl 7.1 6.5 - 8.5 g/dL [facility] ([place]) Albumin 4.2 3.5 - 5.0 g/dL [facility] ([place]) Alk phos 97 40 - 130 Units/L [facility]) ALT 11 7 - 45 Units/L [facility]) AST 13 10 - 45 Units/L [facility] ([place]) Blood 01/19/2025 9:14 AM CDT 01/19/2025 9:23 AM CDT Arin Hitchcock MD LAB BLOOD ORDERABLES Rosalva l Result [facility] 1 [facility] [place] [address] * Albumin Creatinine Ratio, Urine (12/11/2024 1:25 PM CDT) Albumin Ur <12.0 mg/L Comment: Interpretive Data No reference range established. Current interpretive data was last revised 2018. Testing performed by: [facility], [address] [place] [address], [place]., [address] Creatinine Ur 201.1 mg/dL [facility] ([place] Comment: Interpretive Data No reference range established. Current interpretive data was last revised 2018. Testing performed by: [facility], [address] [place] [address], [place]., [address] Albumin Creatinine Ratio, Ur <6 1 - 29 mg/g [facility] ([place]) Comment:Testing performed by : [facility], [address] [place] [address], [place]., [address] Urine 12/11/2024 1:25 PM CDT 12/12/2024 10:04 AM CDT us Radha Rahseed MD LAB URINE ORDERABLES Final Res ult [facility] ([place]) 1 [facility] [place] [address] * Lipid panel (09/11/2024 11:04 PM SURFACE HYDROLOGIST) Cholesterol 152 30 - 199 mg/dL Comment: Interpretive Data Ages < or = 19 years Acceptable: <170 mg/dL Borderline high: 170-199 mg/dL High: >or= 200 mg/dL Ages > or = 20 years Desirable: <200 mg/dL Borderline high: 200-239 mg/dL High: >or= 240 mg/dL Literature References: 1. Expert Panel on Integrated Guidelines for Cardiovascular Health and Risk Reduction in Children and Adolescents. Pediatrics 2011;128:S213 2. NCEP Expert Panel. Circulation 2004;110:227 Current Interpretive Data was last revised on 2018. Triglycerides 126 <=149 mg/dL [facility] Comment: Interpretive Data Ages < or = 9 years Acceptable: <75 mg/dL Borderline high: 75-99 mg/dL High: >or= 100 mg/dL Ages 10 to 20 years Acceptable: <90 mg/dL Borderline high: 90-129 mg/dL High: >or= 130 mg/dL Ages > or = 20 years Desirable: <150 mg/dL Borderline high: 150-199 mg/dL High: 200-499 mg/dL Very high: >or= 499 mg/dL Literature References: 1. Expert Panel on Integrated Guidelines for Cardiovascular Health and Risk Reduction in Children and Adolescents. Pediatrics 2011;128:S213 2. NCEP Expert Panel. Circulation 2004;110:227 Current Interpretive Data was last revised on 2018. HDL 42 >=40 mg/dL [facility] Comment: Interpretive Data Ages < or = 19 years Acceptable: >45 mg/dL Borderline low: 40-45 mg/dL Low: <40 mg/dL Ages > or = 20 years Desirable: >or= 60 mg/dL Low: <40 mg/dL Literature References: 1. Expert Panel on Integrated Guidelines for Cardiovascular Health and Risk Reduction in Children and Adolescents. Pediatrics 2011;128:S213 2. NCEP Expert Panel. Circulation 2004;110:227 Current Interpretive Data was last revised on 2018. LDL, calculated 87 <=129 mg/dL [facility] Comment: Interpretive Data Ages < or = 19 years Acceptable: <110 mg/dL Borderline high: 110-129 mg/dL High: >or= 130 mg/dL Ages > or = 20 years Optimal: <100 mg/dL Near optimal: 100-129 mg/dL Borderline high: 130-159 mg/dL High: >160 mg/dL Calculated using the Shaka LDL-C estimating equation. This equation was implemented on 2024. Prior to this date LDL-C was estimated using the Friedewald equation. Literature References: 1. Expert Panel on Integrated Guidelines for Cardiovascular Health and Risk Reduction in Children and Adolescents. Pediatrics 2011;128:S213 2. NCEP Expert Panel. Circulation 2004;110:227 3. Shaka De et al. EDWARD Cardiol. 2020 December 07;5(5):540-548. doi: 10.1001/jamacardio.2020.0013 Current Interpretive Data was last revised on 2024. Non-HDL Cholesterol 110 mg/dL [facility] Comment: Interpretive Data Ages < or = 19 years Acceptable: <120 mg/dL Borderline high: 120-144 mg/dL High: >145 mg/dL Ages > or = 20 years When triglycerides are >200 mg/dL, Non-HDL cholesterol is a secondary target of therapy with treatment goals that are 30 mg/dL greater than the LDL cholesterol target. Literature References: 1. Expert Panel on Integrated Guidelines for Cardiovascular Health and Risk Reduction in Children and Adolescents. Pediatrics 2011;128:S213 2. NCEP Expert Panel. Circulation 2004;110:227 Current Interpretive Data was last revised on 2018. Chol/HDL ratio 4 [facility] Blood 09/11/2024 11:0 4 PM SURFACE HYDROLOGIST 09/12/2024 12:03 AM SURFACE HYDROLOGIST Arin Hitchcock MD LAB BLOOD ORDERABLES Rosalva l Result Performing Organization Address [facility] de Phone Number [facility] [place] [address] * (ABNORMAL) POCT hemoglobin A1c (09/01/2024 9:26 AM SURFACE HYDROLOGIST) Hgb A1C, POC 6.0(H) 4.0 - 5.6 % Est Average Gluc POC 126 mg/dL [facility] Comment: The ADA recommends reporting an estimated Average Glucose (eAG) with all Hemoglobin A1c results using the equation derived from a study of 507 normal and diabetic adults. Minority populations were underrepresented and children were not included. (Diabetes Care 31:1867-8745, 2008). The eAG is not equivalent to a fasting glucose. Blood 09/01/2024 9:26 AM SURFACE HYDROLOGIST 09/01/2024 9:26 AM SURFACE HYDROLOGIST us Notinfile Unknown POINT OF CARE TEST ORDERABLES Final Result Performing Organization Address [facility] de Phone Number [facility] [place] [address] from Last 3 Months or Most Recently Relevant to Health Maintenance Insurance [facility] [id number] [facility] [id number] Advance Directives For more information, please contact: [phone] * Full Code (Latest Code Status on File) Date Activated Date Inactivated Comments 02/23/2025 9:05 AM 02/24/2025 4:44 AM * Full Code Date Activated Date Inactivated Comments 10/16/2024 7:19 AM 10/17/2024 4:52 AM * Full Code Date Activated Date Inactivated Comments 09/11/2024 9:29 PM 09/13/2024 10:02 PM Care Teams Automobile Inspector Relationship Specialty Start Date End Date Canelo Watson MD [facility] [address] [place] [address] PCP - General Family Practice 08/28/24 Garry Garcia MD [address] [facility] [address] [facility] [address] [place] [address] Referring Physician Obstetrics and Gynecology 10/16/24
--- OUTSIDE RECORDS SUMMARY | 2025-03-19 15:01 | XMS_ITS | Clinical Summary ---
Author Organization Evangelina Sh[facility] Address [address] [place] [address] Phone Care Team Providers Care Metal Template Maker Name Role Phone Atif Arizmendi MD Primary Care Provider Un available Allergies No known active allergies Medications metFORMIN (GLUCOPHAGE) 1,000 mg tablet 02/15/2014 Act chino OXcarbazepine (TRILEPTAL) 300 mg tablet 02/27/2014 Active SMALL ARMS REPAIRER THYROID 90 mg tablet 02/13/2014 Active buPROPion HCl (WELLBUTRIN SR) 200 mg Sustained Release 12 hour tablet 02/27/2014 Active ALPRAZolam (XANAX) 0.5 mg tablet 04/24/2014 Active escitalopram oxalate (LEXAPRO) 20 mg tablet 04/06/2014 Active lamoTRIgine (LAMICTAL) 100 mg tablet 02/13/2014 Active mefenamic acid (PONSTEL) 250 mg Capsule 01/18/2014 Active BENICAR HCT 40-25 mg tablet 02/27/2014 Act chino mv,iron,min-FA-d ietary cmb.24 400 mcg Tablet Take by mouth. Active diphenoxylate-at ropine (LOMOTIL) 2.5-0.025 mg tablet Take 1 Tab by mouth 4 times daily as needed. Active Active Problems Patient Care Coordination No te Formatting of this note migh t be different from the original. Primary Care: Donal Arizmendi MD Referring Provider: Coreen Olivares MD [address] [facility] [address] [place] [address] Other: Problem Noted Date Diagnosed Date Abnormal mammogram 04/27/2014 Mass of breast, right 04/18/2014 Diabetes mellitus Bipolar affective disorder HBP (high blood pressure) Migraine Anemia Obese Anxiety Menstrual cramps Overview (04/27/2014): since teenage yr Family History Medical History Relation Name Comments Diabetes Father Heart Disease Maternal Grandfather x2 Colon Cancer Maternal Grandmother 92 dece ased Diabetes Maternal Uncle Diabetes Mother Diabetes Paternal Uncle Esophageal Cancer Paternal Uncle Relation Name Status Comments Father Alive Maternal Grandfather Maternal Grandmother Maternal Uncle Mother Alive Paternal Uncle Social History Tobacco Use Types Packs/Day Years Used Date Smoking Tobacco: Never Smokeless Tobacco: Never Alcohol Use Standard Drinks/Week Comments Yes 0 (1 standard drink = 0.6 oz pur e alcohol) rarely Comments No Sex and Gender Information Value Date Recorded Sex Assigned at Not on file Legal Sex Female 9:53 AM CDT Gender Identity Not on file Sexual Orientation Not on file Occupation Industry Job Start Date Job End Date Not on file Not on file Not on file Not on file Last Filed Vital Signs Vital Sign Reading Time Taken Comments Blood Pressure 115/64 04/27/2014 10:55 AM CDT Pulse 84 04/27/2014 10:55 AM CDT Temperature - - Respiratory Rate - - Oxygen Saturation - - Inhaled Oxygen Concentration - - Weight 179.1 kg (394 lb 12.8 oz) 2013 10:55 AM CDT Height 165.1 cm (5' 5) 04/27/2014 10:5 5 AM CDT Body Mass Index 65.7 04/27/2014 10:55 AM CDT Plan of Treatment Health Maintenance Due Date Last Done Comments DIABETES ANNUAL FOOT EXAM 01/03/1982 DIABETES ANNUAL RETINAL EXAM 01/03/1982 DIABETES HBA1C Q 6 MONTHS 01/03/1982 DIABETES MICROALBUMIN ANNUAL SCREEN 01/03/1982 LDL CHOLESTEROL ANNUAL 01/03/1982 DTAP/TDAP/TD VACCINES (1 - Tdap) 01/03/1983 HPV/Cotest (21-29) 01/03/1985 CERVICAL CANCER SCREENING 01/03/1994 HPV/Cotest (30-65) 01/03/1994 PAP SMEAR 01/03/1994 COLORECTAL SCREENING 01/03/2009 Colorectal Cancer Screening 01/03/2009 FIT-DNA Q 3 years 01/03/2009 FIT/FOBT Q 1 year 01/03/2009 Flex Sig/CT Colonography Q 5 years 01/03/2009 ZOSTER VACCINE (1 of 2) 01/03/2014 BREAST CANCER SCREENING 04/27/2015 04/27/20 14, 08/11/2013, 07/29/2013 INFLUENZA VACCINE (#1) 2025 RSV VACCINE (60+ or ) (1 - 1-dose 75+ series) 01/03/2039 Procedures Procedure Name Priority Date/Time Associated Diagnosis Comments MAMMO DIAGNOSTIC UNI RIGHT W OR WO CAD Routine 04/27/2014 1:17 PM CDT Mass of breast, right from Last 3 Months or Most Recently Relevant to Health Maintenance Results * MAMMO DIGITAL DIAG UNI RIGHT (04/27/2014 1:17 PM CDT) Anatomical Region Laterality Modality Breast Right Mammography 04/27/2014 1:16 PM CDT Impressions 04/30/2014 10:03 AM CDT IMPRESSION: Technically successful ultrasound-guided core biopsy with tissue marker placement. Dictated from Rachel Hutchinson Narrative 04/30/2014 10:03 AM CDT ULTRASOUND-GUIDED CORE BIOPSY OF THE RIGHT BREAST, TISSUE MARKER CLIP PLACEMENT, UNILATERAL DIGITAL MAMMOGRAM DATE: 04/27/14 HISTORY: Right breast mass. Ultrasound-guided core biopsy has been recommended PROCEDURE AND FINDINGS: The risks and potential benefits of the procedure were discussed with the patient and written informed was obtained. After sterile preparation of the skin, 1% lidocaine without epinephrine was utilized for local anesthesia. A 10 gauge vacuum-assisted core biopsy needle was advanced through the lesion of interest using sonographic guidance. A total of 2 tissue cores were obtained throughout the lesion. A tissue marker clip was then placed at the biopsy site under ultrasound guidance. Hemostasis was achieved. A sterile bandage and an ice pack were applied. A two-view right unilateral digital mammogram was obtained post procedure and this demonstrates that the tissue marker clip is in the expected position. The patient tolerated the procedure well and there was no evidence of immediate complication. The patient was given verbal as well as written postprocedure instructions prior to the release from the department. The tissue cores were submitted to surgical pathology in formalin for histological analysis. Procedure Note Ioana Rodriguez MD - 04/30/2014 ULTRASOUND-GUIDED CORE BIOPSY OF THE RIGHT BREAST, TISSUE MARKER CLIP PLACEMENT, UNILATERAL DIGITAL MAMMOGRAM DATE: 04/27/14 HISTORY: Right breast mass. Ultrasound-guided core biopsy has been recommended PROCEDURE AND FINDINGS: The risks and potential benefits of the procedure were discussed with the patient and written informed was obtained. After sterile preparation of the skin, 1% lidocaine without epinephrine was utilized for local anesthesia. A 10 gauge vacuum-assisted core biopsy needle was advanced through the lesion of interest using sonographic guidance. A total of 2 tissue cores were obtained throughout the lesion. A tissue marker clip was then placed at the biopsy site under ultrasound guidance. Hemostasis was achieved. A sterile bandage and an ice pack were applied. A two-view right unilateral digital mammogram was obtained post procedure and this demonstrates that the tissue marker clip is in the expected position. The patient tolerated the procedure well and there was no evidence of immediate complication. The patient was given verbal as well as written postprocedure instructions prior to the release from the department. The tissue cores were submitted to surgical pathology in formalin for histological analysis. IMPRESSION IMPRESSION: Technically successful ultrasound-guided core biopsy with tissue marker placement. Dictated from Rachel Hutchinson us Rosanna Warren MD MAMMO ORDERABLES Final Resul t from Last 3 Months or Most Recently Relevant to Health Maintenance Insurance [facility] OPEN ACCESS HMO Care Teams Metal Template Maker Relationship Specialty Start Date End Date Atif Arizmendi MD PCP - General Internal Medicine 04/26/14
--- OUTSIDE RECORDS SUMMARY | 2025-03-19 15:02 | XMS_ITS | Encounter Summary ---
Author Organization [facility] Address [address] [place] [address] Care Team Providers Care School Bus Attendant Name Role Phone Canelo Watson MD Primary Care Provider Garry Garcia MD Unavailable [phone] Encounter Details Date Type Department Care Team (Late st Contact Info) Description 09/12/2024 Documentation [facility] [address] [place] [id number] Shana Leyva RN Social History Tobacco Use Types Packs/Day Years Used Date Smoking Tobacco: Never Passive Smoke Exposure: Never Smokeless Tobacco: Never Alcohol Use Standard Drinks/Week Comments Yes 0 (1 standard drink = 0.6 oz pur e alcohol) AUDIT-C Answer Date Recorded Q1: How often do you have a drink containing alc ohol? Monthly or less 09/12/2024 Q2: How many drinks containi ng alcohol do you have on a typical day when you are drinking? 1 or 2 09/12/2024 Q3: How often do you have si x or more drinks on one occasion? Never 09/12/2024 Personal Safety Answer Date Recorded Have you ever been in or are you currently in a harmful physical or emotional relationship or is someone making you feel afraid or unsafe? Denies 09/11/2024 Comments No Sex and Gender Information Value Date Recorded Sex Assigned at Not on file Legal Sex Female 12:16 PM AUDIO SPECIALIST Gender Identity Not on file Sexual Orientation Not on file documented as of this encounter Functional Status * AUDIT-C Score Answer Date of Assessment Author 1 09/12/2024 9:51 AM AUDIO SPECIALIST Remy RN * Question Answer Date of Assessment Author Q1: How often do you have a drink containing alcohol? Monthly or less 09/12/2024 9:51 AM Jose Pelayo RN Q2: How many drinks containing alcohol do you have on a typical day when you are drinking? 1 or 2 09/12/2024 9:51 AM Bulmaro Pelayo RN Q3: How often do you have si x or more drinks on one occasion? Never 09/12/2024 9:51 AM Bulmaro Pelayo RN documented as of this encounter Miscellaneous Notes * Plan of Care - Shana Leyva RN - 09/12/2024 10:05 AM CST Pt admitted for complex l adnexal mass from ED . OR today for hysterectomy. PT off floor unable to interview at this time, will f/u post op O SPECIALIST documented in this encounter Plan of Treatment Not on file documented as of this encounter Visit Diagnoses Not on filedocumented in this encounter Additional Health Concerns Infection Onset Date Last Indicated Resolved Time COVID: Suspected 10/18/2024 10/18/2024 10/18/2024 2:00 PM CDT C. difficile suspected 02/08/2025 02/10/202502/09 7:26 PM CDT C. difficile suspected 02/10/2025 02/10/202502/10 12:45 PM CDT documented as of this encounter Care Teams School Bus Attendant Relationship Specialty Start Date End Date Canelo Watson MD [address] [facility] [address] [place] [address] PCP - General Family Practice 08/28/24 Garry Garcia MD [address] [facility] [address] [facility] [address] [place] [address] Referring Physician Obstetrics and Gynecology 10/16/24 documented as of this encounter
--- OUTSIDE RECORDS SUMMARY | 2025-03-19 15:02 | XMS_ITS | Clinical Summary ---
Author Organization [facility] Address [address] [place] [address] Phone Care Team Providers Care Interior Design Consultant Name Role Phone Canelo Watson MD Primary Care Provider Allergies No known active allergies Medications ALPRAZolam (XANAX) 0.5 MG Tablet Take 0.5 mg by mouth 3 times daily as needed. Active BuPROPion HCl 200 MG TABLET SR 12 HR Take 200 mg by mouth 2 times daily. Active clarithromycin (BIAXIN) 500 MG Tablet Take 500 mg by mouth 2 times daily. Active diphenoxylate-a tropine (LOMOTIL) 2.5-0.025 MG Tablet Take 1 Tab by mouth 2 times daily as needed. Active escitalopram (LEXAPRO) 10 MG Tablet Take 10 mg by mouth daily. Active ferrous sulfate 325 (65 Fe) MG Tablet Take 325 mg by mouth daily. Active fluticasone (FLONASE) 50 MCG/ACT Suspension 1-2 Sprays by Nasal route daily. Use in each nostril as directed. Active hyoscyamine (ANASPAZ, LEVSIN) 0.125 MG Tablet Take 0.125 mg by mouth every 4 hours as needed. Active lamoTRIgine (LAMICTAL) 100 MG Tablet Take 100 mg by mouth daily. Active methylPREDNISol one (MEDROL) 4 MG Tablet Take 4 mg by mouth daily. Active metFORMIN (GLUCOPHAGE) 500 MG Tablet Take 500 mg by mouth 2 times daily (with meals). Active olmesartan-hydr ochlorothiazide (BENICAR HCT) 40-25 MG Tablet Take 1 Tab by mouth daily. Active OXcarbazepine (TRILEPTAL) 300 MG Tablet Take 300 mg by mouth 2 times daily. Active albuterol (PROVENTIL HFA) 108 (90 Base) MCG/ACT Aerosol Solution take 2 Puffs by inhalation every 4 hours as needed. Active Cholecalciferol (VITAMIN D3 PO) Take 5,000 Units by mouth. Active albuterol 108 (90 Base) MCG/ACT Aerosol Solution take 2 Puffs by inhalation every 6 hours as needed for Wheezing or Cough. 1 Inhaler 8 Active predniSONE (DELTASONE) 20 MG Tablet Use as directed. 15 Tab 8 Active Active Problems No known active problems Family History Medical History Relation Name Comments Ovarian Cancer Mother Relation Name Status Comments Mother Social History Tobacco Use Types Packs/Day Years Used Date Smoking Tobacco: Never Smokeless Tobacco: Never Alcohol Use Standard Drinks/Week Comments No 0 (1 standard drink = 0.6 oz pur e alcohol) Comments No Sex and Gender Information Value Date Recorded Sex Assigned at Female 08/01/2023 7:42 PM VOLTAGE TESTER Legal Sex Female 7:12 PM CDT Gender Identity Female 08/01/2023 7:42 PM VOLTAGE TESTER Sexual Orientation Straight 08/01/2023 7: 42 PM VOLTAGE TESTER Last Filed Vital Signs Vital Sign Reading Time Taken Comments Blood Pressure 117/78 08/05/2018 4:00 PM VOLTAGE TESTER Pulse 94 08/05/2018 4:00 PM VOLTAGE TESTER Temperature 37.1 C (98.7 F) 08/05/2018 1:27 PM VOLTAGE TESTER Respiratory Rate 20 08/05/2018 3:29 PM VOLTAGE TESTER Oxygen Saturation 97% 08/05/2018 4:00 PM VOLTAGE TESTER Inhaled Oxygen Concentration - - Weight 158.8 kg (350 lb) 08/05/2018 1:27 PM VOLTAGE TESTER Height 162.6 cm (5' 4) 08/05/2018 1:27 PM VOLTAGE TESTER Body Mass Index 60.08 08/05/2018 1:27 PM VOLTAGE TESTER Plan of Treatment Health Maintenance Due Date Last Done Comments Hepatitis C Virus (HCV) Screening 1965 TdaP Immunization 1965 Pap Smear 01/03/1985 Cervical Cancer Screening (CCS) 01/03/1994 HPV/Cotest 01/03/1994 Cologuard 01/03/2009 Colonoscopy 01/03/2009 Colorectal Cancer Screening 01/03/2009 Immunochemical Fecal Occult Blood 01/03/2009 Pneumococcal Immunization (50+ years) (1 of 1 - PCV) 01/03/2014 Zoster Immunization (1 of 2) 01/03/2014 Influenza Immunization (#1) 04/09/202504/10, 05/21/2023, 05/15/2022, Additional history exists Mammogram 08/08/2025 08/08/2024, 07/10, 03/26/2022, Additional history exists Respiratory Syncytial Virus (RSV) Immunization (Adult) Completed 05/06/2024, 05/26/2023 SARS-COV-2 Immunization Completed 05/09/20 24, 06/02/2023, 05/15/2022, Additional history exists Hepatitis B Immunization Aged Out No longer eligible based on patient's age to complete this topic Human Papillomavirus (HPV) Immunization Aged Out No longer eligible based on patient's age to complete this topic Meningococcal Immunization (ACWY) Aged Out No longer eligible based on patient's age to complete this topic Rotavirus Immunization Aged Out No lo nger eligible based on patient's age to complete this topic Procedures Procedure Name Priority Date/Time Associated Diagnosis Comments EVIE SCREENING BILATERAL DIGITAL W CAD W JACKSON Routine 08/08/2024 12:07 PM VOLTAGE TESTER Visit for screening mammogram from Last 3 Months or Most Recently Relevant to Health Maintenance Results * EVIE SCREENING BILATERAL DIGITAL W CAD W JACKSON (08/08/2024 12:07 PM VOLTAGE TESTER) Anatomical Region Laterality Modality breast Bilateral Mammography 08/08/2024 12:0 7 PM VOLTAGE TESTER Narrative 08/10/2024 3:46 PM VOLTAGE TESTER - EVIE SCREENING BILATERAL DIGITAL W CAD [...] to exams dated: 03/26/2022, 02/05/2020, and 07/29/2023 [facility]. BREAST TISSUE:There are scattered areas of fibroglandular [...] exam. Electronically signed by: Jason milan/jennyfer:08/10/2024 11:53:11 Fixed Income Director(s): RT Hailey(R)(M), [facility] letter sent: Normal Exam Reading location: [place] [...] to exams dated: 03/26/2022, 02/05/2020, and 07/29/2023 [facility]. BREAST TISSUE:There are scattered areas of fibroglandular [...] exam. Electronically signed by: Jason milan/jennyfer:08/10/2024 11:53:11 Fixed Income Director(s): Beverly Prajapati RT(R)(M), [facility] letter sent: Normal Exam Reading location: [place] Mammogram BI-RADS: Category 2: Benign us Garry Garcia MD IMG MAMMO ORDERABLES Final R esult from Last 3 Months or Most Recently Relevant to Health Maintenance Insurance [facility] Care Teams Interior Design Consultant Relationship Specialty Start Date End Date Canelo Watson MD PCP - General Family Medicine 04/22/20
[2025-03-19 18:25] LABS: Hematocrit 35.0 % (37.0-47.0); Hemoglobin 10.9 g/dL (12.0-15.0); Immature Granulocyte Percent A 0.3 % (0-0.5); Lymphocytes Absolute Auto 1.57 K/mm3 (0.9-3.2); Mean Corpuscular HGB Conc 31.1 g/dl (32-36); Mean Corpuscular Hemoglobin 31.7 pg (26-34); Mean Corpuscular Volume 101.7 fl (80-100); Nucleated Red Blood Cells Absolute Auto 0.000 K/mm3 (0.0-0.012); Nucleated Red Blood Cells Perc 0.0 % (0.0-0.2); Platelet Count Result 256 k/mm3 (150-375); Red Blood Count 3.44 M/mm3 (4.2-5.4); White Blood Count 7.2 K/mm3 (4.5-10.0)
[2025-03-19 18:33] LABS: Hemoglobin A1C 5.3 % (<5.7)
[2025-03-19 18:40] LABS: Alanine Aminotransferase 29 U/L (6-35); Albumin Level 4.1 g/dL (3.5-5.1); Alkaline Phosphatase 100 U/L (38-126); Anion Gap 7 mmol/L (4-12); Aspartate Amino Transferase 31 U/L (14-36); Bilirubin,Total 0.3 mg/dL (0.2-1.3); Blood Urea Nitrogen 23 mg/dL (7-17); Calcium 9.6 mg/dL (8.4-10.2); Carbon Dioxide 30 mmol/L (22-30); Chloride 101 mmol/L (98-107); Cholesterol 179 mg/dL (0-200); Estimated Glomerular Filt Rate 56; Glucose 96 mg/dL (65-110); HDL Direct 37 mg/dL; Potassium 4.3 mmol/L (3.4-5.0); Sodium 138 mmol/L (137-145); Total Protein 7.0 g/dL (6.3-8.2); Triglycerides 246 mg/dL (<150)
[2025-03-19 18:54] LABS: MALB Creatinine Ratio < 6.7 mg/g (0-30)
[2025-03-19 19:11] LABS: Thyroid Stimulating Hormone Reflex 1.500 uIU/mL (0.465-4.68)
[2025-03-19 20:11] LABS: Vitamin B12 375.0 pg/mL (239-931)
== END 2025-03-19 14:49 | disposition home or self-care (01) ==
PROVIDERS: PCP Nurse Practitioner Family; Visit Provider Nurse Practitioner Family
DX: E55.9 Vitamin D deficiency, unspecified (principal); I10 Essential (primary) hypertension; E03.9 Hypothyroidism, unspecified; E11.9 Type 2 diabetes mellitus without complications; E78.5 Hyperlipidemia, unspecified; E53.8 Deficiency of other specified B group vitamins
CPT/HCPCS: 36415; 80053; 80061; 82043; 82306; 82607; 83036; 84443; 85025